=== PATIENT | male | born 1945 | race Caucasian/White ===

== ENCOUNTER 2021-01-25 06:20 | Day surgery (SDC) | payer MEDICARE, OTHER, SELFPAY ==
[2021-01-15 09:58] LABS: MANUAL DIFF FLAG NO
[2021-01-15 10:48] LABS: Basophils Percent Auto 0.7 % (0-2); Eosinophils Absolute Auto 0.1 X10*3/uL (0.0-0.4); Eosinophils Percent Auto 1.6 % (0-4); Hematocrit 35.9 % (42-52); Hemoglobin 12.4 g/dl (14.0-18.0); Imm Gran Abs Auto 0.01 X10*3/uL (0.00-0.03); Imm Gran Pct Auto 0.2 % (0.0-0.4); Lymphocytes Absolute Auto 1.1 X10*3/uL (1.2-4.9); Lymphocytes Percent Auto 25.3 % (20-40); Mean Corpuscular HGB Conc 34.5 g/dl (31.0-36.0); Mean Corpuscular Hemoglobin 32.5 pg (27.0-33.0); Mean Platelet Volume 10.4 fL (9.4-12.4); Monocytes Absolute Auto 0.6 X10*3/uL (0.1-1.2); Neutrophils Absolute Auto 2.6 X10*3/uL (2.0-8.3); Neutrophils Percent Auto 59.2 % (45-73); Platelet Count 276 X10*3/uL (160-400); Red Blood Count 3.82 X10*6/uL (4.60-5.80); Red Cell Distribution Width 12.3 % (11.0-16.0); White Blood Count 4.4 X10*3/uL (4.8-10.8)
[2021-01-15 11:08] LABS: INTERNATIONAL NORM RATIO 1.2 (0.9-1.1); Prothrombin Time 13.8 SEC (9.9-13.0)
[2021-01-15 11:20] LABS: Anion Gap 11 (12-20); Blood Urea Nitrogen 15 mg/dL (9-16); Calcium 9.5 mg/dL (8.4-10.2); Carbon Dioxide 26 mmol/L (22-29); Chloride 106 mmol/L (96-108); Estimated Glomerular Filt Rate > 60; Glucose Random 101 mg/dL (60-115); Potassium 4.8 mmol/L (3.3-5.1); Sodium 138 mmol/L (135-145)
[2021-01-15 12:12] LABS: Appearance Urine CLEAR; Color Urine YELLOW; Glucose Urine UA NEG (NEG); Leukocyte Esterase Urine NEG (NEG); Nitrite Urine NEG (NEG); Urine Blood NEG (NEG); Urine Ketones NEG (NEG); Urine Protein NEG (NEG-TRACE)
--- NOTE | 2021-01-20 10:52 | MHC.SHP ---
Pre-Procedural Eval Section A Date of Service: 01/20/21 The patient is an INPATIENT: No Changes since office visit: No Cold of Flu in the past 2 weeks, No New Medical Problems, No Changes in Medication and No Patient answered all questions The History & Physical has been completed within 30 days and I have reviewed it.: Yes Section B Chief Complaint: cataract left eye Allergies: Allergies Allergy/AdvReac Type Severity Reaction Status Date / Time acetaminophen [From PERCOCET] Allergy Unknown PER PT Verified 01/15/21 08:57 WIRED From PERCOCET Allergy Unknown PER PT Uncoded 01/15/21 08:57 WIRED Plan Diagnosis/Plan: Unchanged I have reviewed the history and physical and performed a pertinent physical examination on my patient. No changes have occurred unless specified.
[2021-01-21 08:12] VITALS: BMI 27.9
--- NOTE | 2021-01-22 09:28 | P.CONAN_ITS ---
Documented by User: Gypsy Nieves NP 01/22/21 09:30 HPI - Anesthesia Eval Consult details Narrative: 75yo M for Left Cataract Multifocal with IOL Insertion PCP cleared No previous cataract PMFSH Active Problems Active Problems: All Active Problems (Updated 01/19/21 @ 11:49 by Camila Calderon, ISMA) Pre-op evaluation (Acute) Essential hypertension (Acute) Past Medical History Medical History Arthritis Chronic low back pain with left-sided sciatica HTN (hypertension) Surgical History Surgical History H/O prostatectomy History of carpal tunnel release Hx of colonoscopy Social History Social History Patient Tobacco Use Status: Never used Tobacco Tobacco use type: Cigarette e-Cigarette/Vaping Use: Never Used Second Hand Smoke Exposure: No Use of substances other than those prescribed or required for medical reasons: No Are you DNR?: No Advance Directives: No Advance Directives Information Provided: Yes Meds Allergies Allergy/AdvReac Type Severity Reaction Status Date / Time acetaminophen [From PERCOCET] Allergy Mild PER PT Verified 01/25/21 06:27 WIRED From PERCOCET Allergy Mild PER PT Uncoded 01/25/21 06:27 WIRED Home Medications Medication Instructions Recorded Confirmed Last Taken Type cholecalciferol (vitamin D3) 25 25 mcg PO DAILY 01/15/21 01/19/21 Unknown History mcg (1,000 unit) capsule magnesium oxide 400 mg PO DAILY 01/15/21 01/19/21 Unknown History Exam Exam Date and Time: January 22, 2021 0928 Height,Weight and Vital Signs: Height 6 ft Weight 93.44 kg Pertinent Lab Results Pertinent Lab Results: Laboratory Tests 01/15/21 01/15/21 01/15/21 09:56 09:56 09:56 WBC 4.4 L RBC 3.82 L Hgb 12.4 L Hct 35.9 L MCV 94.0 MCH 32.5 MCHC 34.5 RDW 12.3 Plt Count 276 MPV 10.4 Immature Gran % (Auto) 0.2 Neut % (Auto) 59.2 Lymph % (Auto) 25.3 [place] % (Auto) 13.0 H Eos % (Auto) 1.6 Baso % (Auto) 0.7 Lymph # (Auto) 1.1 L [place] # (Auto) 0.6 Eos # (Auto) 0.1 Baso # (Auto) 0.0 Abs Immat Gran (auto) 0.01 Absolute Neuts (auto) 2.6 Absolute Nucleated RBC 0.000 Nucleated RBC % (auto) 0.0 PT 13.8 H INR 1.2 H Sodium 138 Potassium 4.8 Chloride 106 Carbon Dioxide 26 Anion Gap 11 L BUN 15 Creatinine 0.94 Estim Creat Clear Calc TNP Estimated GFR > 60 Random Glucose 101 Calcium 9.5 Urine Color Urine Appearance Urine pH Ur Specific [place] Urine Protein Urine Glucose (UA) Urine Ketones Urine Blood Urine Nitrite Ur Leukocyte Esterase 01/15/21 Unknown WBC RBC Hgb Hct MCV MCH MCHC RDW Plt Count MPV Immature Gran % (Auto) Neut % (Auto) Lymph % (Auto) [place] % (Auto) Eos % (Auto) Baso % (Auto) Lymph # (Auto) [place] # (Auto) Eos # (Auto) Baso # (Auto) Abs Immat Gran (auto) Absolute Neuts (auto) Absolute Nucleated RBC Nucleated RBC % (auto) PT INR Sodium Potassium Chloride Carbon Dioxide Anion Gap BUN Creatinine Estim Creat Clear Calc Estimated GFR Random Glucose Calcium Urine Color YELLOW Urine Appearance CLEAR Urine pH 6.0 Ur Specific [place] 1.010 Urine Protein NEG Urine Glucose (UA) NEG Urine Ketones NEG Urine Blood NEG Urine Nitrite NEG Ur Leukocyte Esterase NEG Assessment and Plan Assessment Anesthesia Assessment: Chart Reviewed Documented by User: Jayjay Huddleston MD 01/25/21 07:03 [facility] Past Medical History Medical History Arthritis Chronic low back pain with left-sided sciatica HTN (hypertension) Family History Family history of problems with anesthesia: No Surgical History Surgical History H/O prostatectomy History of carpal tunnel release Hx of colonoscopy History of Problems with Anesthesia: No Social History Social History Patient Tobacco Use Status: Never used Tobacco Tobacco use type: Cigarette e-Cigarette/Vaping Use: Never Used Second Hand Smoke Exposure: No Use of substances other than those prescribed or required for medical reasons: No Are you DNR?: No Advance Directives: No Advance Directives Information Provided: Yes Meds Allergies Allergy/AdvReac Type Severity Reaction Status Date / Time acetaminophen [From PERCOCET] Allergy Mild PER PT Verified 01/25/21 06:27 WIRED From PERCOCET Allergy Mild PER PT Uncoded 01/25/21 06:27 WIRED Home Medications Medication Instructions Recorded Confirmed Last Taken Type cholecalciferol (vitamin D3) 25 25 mcg PO DAILY 01/15/21 01/19/21 Unknown History mcg (1,000 unit) capsule magnesium oxide 400 mg PO DAILY 01/15/21 01/19/21 Unknown History Exam Airway Mallampati Class: III TM Dist: >3cm Neck ROM: Full Loose/Missing/Broken Teeth: No (few permanent caps) Heart: rrr+[id number] Lungs: cta b/l Assessment and Plan Assessment Anesthesia Assessment: Anesthesia Plan Discussed Final Anesthetic Review Family History of Problems with Anesthesia: No History of Problems with Anesthesia: No NPO: Yes ASA Class: II Final Preanesthetic Review: No Changes in Pt Med Stat, Meds/Allgs Chart Reviewed, Consent Obtained/Reviewed and Anes Risks/Benef Reviewed Patient Risk: Intermediate Procedure Risk: Low Assessment/Block/Sedation in SS: Assess/Block/Sedation-SS Anesthetic Plan Anesthetic Plan: MAC: and Agree w/ Assess. and Plan Disposition: Standard PACU
[2021-01-25 06:42] VITALS: BP 122/71; PULSE 65; RESP 18; TEMP 36.1; O2SAT 99
[2021-01-25] MEDS: Lactated Ringers 500 ML 50 ML IV (06:54)
[2021-01-25] MEDS: Tetracaine HCl/PF 0.5% Oph Sol 4 ML DROPS 1 DROP EYE-LEFT (06:56)
[2021-01-25] MEDS: Tropicamide 1 % Ophth Sol 3 ML BTL 1 DROP EYE-LEFT ×3 (06:58→07:08)
[2021-01-25] MEDS: Phenylephrine HCL 2.5% Oph SoL 2 ML BOTTLE 1 DROP EYE-LEFT ×3 (07:01→07:10)
--- NOTE | 2021-01-25 07:55 | HO.PNOPHT ---
Ophthalmology Procedure Procedure Date of Service: 01/25/21 Ophthalmology Viscoelastic: Healon Duet Dual Pack Pro Ophthalmology Lenses: TECNIS [id number] (23.5) Procedure Notes: PREOPERATIVE DIAGNOSIS: Decreased visual acuity left eye secondary to cataract POSTOPERATIVE DIAGNOSIS: Same PROCEDURE: Left cataract extraction with intraocular lens insertion SURGEON: Williams Braxton M.D. ANESTHESIA: Topical/MAC ESTIMATED BLOOD LOSS: None COMPLICATIONS: None After obtaining informed consent, the patient was brought to the operation room suite and placed in the supine position. After adequate sedation per anesthesia, topical drops of Tetracaine were given to the left eye. The eye was then prepped and draped in the usual sterile fashion. The operating room microscope was then positioned over the operative eye and a lid speculum placed. A paracentesis was created. Viscoelastic was then instilled into the anterior chamber. A three plane incision was then created temporally, utilizing a 2.85 mm keratome. Capsulotomy forceps were then utilized to create a circular tear capsulotomy. Hydrodissection and hydrodelineation were carried out until adequate mobilization of the nucleus occurred. Phacoemulsification was then utilized to remove the dense central nucleus followed by removal of the cortical material utilizing the automated aspiration irrigation unit. Viscoat elastic was instilled into the posterior capsular bag followed by placement of a posterior chamber intraocular lens without difficulty. The residual Viscoat elastic was then removed utilizing the automated IA machine. The wound was check and found to be watertight. The patient tolerated the procedure well and the lid speculum was removed. Intracameral injection of Vigamox 0.1 mL followed by a subtenon injection of Kenalog-40 0.2 mL were administered. The patient will be seen in the a.m.
[2021-01-25 08:18] VITALS: BP 136/78; PULSE 64; RESP 16; TEMP 36.6; O2SAT 97
== END 2021-01-25 08:27 | disposition home or self-care (01) ==
PROVIDERS: Absent Provider Nurse Practitioner Family; PCP Internal Medicine; Visit Provider Ophthalmology
PROC: (CPT 66985; principal; 2021-01-25 08:00)
DX: H25.12 Age-related nuclear cataract, left eye (principal); H52.4 Presbyopia; Z83.511 Family history of glaucoma; I10 Essential (primary) hypertension; Z79.899 Other long term (current) drug therapy; Z85.46 Personal history of malignant neoplasm of prostate
CPT/HCPCS: 66984; 36415; 80048; 81003; 85025; 85610; J2250; J3010; J3300; V2632

== ENCOUNTER 2021-02-08 06:06 | Day surgery (SDC) | payer MEDICARE, OTHER, SELFPAY ==
[2021-01-21 08:11] VITALS: BMI 27.9
--- NOTE | 2021-02-04 13:27 | MHC.SHP ---
Pre-Procedural Eval Section A Date of Service: 02/04/21 The patient is an INPATIENT: No Changes since office visit: No Cold of Flu in the past 2 weeks, No New Medical Problems, No Changes in Medication and No Patient answered all questions The History & Physical has been completed within 30 days and I have reviewed it.: Yes Section B Chief Complaint: cataract right eye Allergies: Allergies Allergy/AdvReac Type Severity Reaction Status Date / Time acetaminophen [From PERCOCET] Allergy Mild PER PT Verified 01/25/21 06:27 WIRED From PERCOCET Allergy Mild PER PT Uncoded 01/25/21 06:27 WIRED Plan Diagnosis/Plan: Unchanged I have reviewed the history and physical and performed a pertinent physical examination on my patient. No changes have occurred unless specified.
--- NOTE | 2021-02-05 13:09 | HO.ANESPROP2 ---
Documented by User: Gypsy Nieves NP 02/05/21 13:10 HPI - Anesthesia Eval Consult details Narrative: 75yo M for Right Cataract Extraction IOL Insertion PCP cleared Left eye 01/25/21 with MAC: Fent 50, Midaz 1 PMFSH Active Problems Active Problems: All Active Problems (Updated 01/19/21 @ 11:49 by Camila Calderon, ISMA) Pre-op evaluation (Acute) Essential hypertension (Acute) Past Medical History Medical History Arthritis Chronic low back pain with left-sided sciatica HTN (hypertension) Family History Family history of problems with anesthesia: No Surgical History Surgical History H/O prostatectomy History of carpal tunnel release History of cataract extraction Hx of colonoscopy History of Problems with Anesthesia: No Social History Social History Patient Tobacco Use Status: Never used Tobacco Tobacco use type: Cigarette e-Cigarette/Vaping Use: Never Used Second Hand Smoke Exposure: No Use of substances other than those prescribed or required for medical reasons: No Are you DNR?: No Advance Directives: No Advance Directives Information Provided: Yes Meds Allergies Allergy/AdvReac Type Severity Reaction Status Date / Time acetaminophen [From PERCOCET] Allergy Mild PER PT Verified 02/08/21 06:15 WIRED From PERCOCET Allergy Mild PER PT Uncoded 01/25/21 06:27 WIRED Home Medications Medication Instructions Recorded Confirmed Last Taken Type cholecalciferol (vitamin D3) 25 25 mcg PO DAILY 01/15/21 01/19/21 Unknown History mcg (1,000 unit) capsule magnesium oxide 400 mg PO DAILY 01/15/21 01/19/21 Unknown History Exam Exam Date and Time: February 05, 2021 1309 Height,Weight and Vital Signs: Height 6 ft Weight 93.44 kg Assessment and Plan Assessment Anesthesia Assessment: Chart Reviewed Final Anesthetic Review Family History of Problems with Anesthesia: No History of Problems with Anesthesia: No Documented by User: Jayjay Huddleston MD 02/08/21 07:02 [facility] Past Medical History Medical History Arthritis Chronic low back pain with left-sided sciatica HTN (hypertension) Surgical History Surgical History H/O prostatectomy History of carpal tunnel release History of cataract extraction Hx of colonoscopy Social History Social History Patient Tobacco Use Status: Never used Tobacco Tobacco use type: Cigarette e-Cigarette/Vaping Use: Never Used Second Hand Smoke Exposure: No Use of substances other than those prescribed or required for medical reasons: No Are you DNR?: No Advance Directives: No Advance Directives Information Provided: Yes Meds Allergies Allergy/AdvReac Type Severity Reaction Status Date / Time acetaminophen [From PERCOCET] Allergy Mild PER PT Verified 02/08/21 06:15 WIRED From PERCOCET Allergy Mild PER PT Uncoded 01/25/21 06:27 WIRED Home Medications Medication Instructions Recorded Confirmed Last Taken Type cholecalciferol (vitamin D3) 25 25 mcg PO DAILY 01/15/21 01/19/21 Unknown History mcg (1,000 unit) capsule magnesium oxide 400 mg PO DAILY 01/15/21 01/19/21 Unknown History Exam Airway Mallampati Class: III TM Dist: >3cm Neck ROM: Full Loose/Missing/Broken Teeth: Yes Heart: rrr+s1s2 Lungs: cta b/l Assessment and Plan Assessment Anesthesia Assessment: Anesthesia Plan Discussed Final Anesthetic Review NPO: No ASA Class: III Final Preanesthetic Review: No Changes in Pt Med Stat, Meds/Allgs Chart Reviewed, Consent Obtained/Reviewed and Anes Risks/Benef Reviewed Patient Risk: Intermediate Procedure Risk: Low Assessment/Block/Sedation in SS: Assess/Block/Sedation-SS Anesthetic Plan Anesthetic Plan: MAC: and Agree w/ Assess. and Plan Disposition: Standard PACU
[2021-02-08 06:16] VITALS: BP 141/73; PULSE 85; RESP 16; TEMP 36.2; O2SAT 98
[2021-02-08] MEDS: Tetracaine HCl/PF 0.5% Oph Sol 4 ML DROPS 1 DROP EYE-RIGHT (06:25)
[2021-02-08] MEDS: Lactated Ringers 500 ML 50 ML IV (06:27)
[2021-02-08] MEDS: Tropicamide 1 % Ophth Sol 3 ML BTL 1 DROP EYE-RIGHT ×3 (06:27→06:34)
[2021-02-08] MEDS: Phenylephrine HCL 2.5% Oph SoL 2 ML BOTTLE 1 DROP EYE-RIGHT ×3 (06:29→06:36)
--- NOTE | 2021-02-08 07:12 | HO.PNOPHT ---
Ophthalmology Procedure Procedure Date of Service: 02/08/21 Ophthalmology Viscoelastic: Healon Duet Dual Pack Pro Ophthalmology Lenses: TECNIS [id number] (23.5) Procedure Notes: PREOPERATIVE DIAGNOSIS: Decreased visual acuity right eye secondary to cataract POSTOPERATIVE DIAGNOSIS: Same PROCEDURE: Right cataract extraction with intraocular lens insertion SURGEON: Williams Braxton M.D. ANESTHESIA: Topical/MAC ESTIMATED BLOOD LOSS: None COMPLICATIONS: None After obtaining informed consent, the patient was brought to the operating room suite and placed in the supine position. After adequate sedation per anesthesia, topical drops of Tetracaine were given to the right eye. The eye was then prepped and draped in the usual sterile fashion. The operating room microscope was then positioned over the operative eye and a lid speculum placed. A paracentesis was created. Viscoelastic was then instilled into the anterior chamber. A three plane incision was then created temporally, utilizing a 2.85 mm keratome. Capsulotomy forceps were then utilized to create a circular tear capsulotomy. Hydrodissection and hydrodelineation were carried out until adequate mobilization of the nucleus occurred. Phacoemulsification was then utilized to remove the dense central nucleus followed by removal of the cortical material utilizing the automated aspiration irrigation unit. Viscoelastic was instilled into the posterior capsular bag followed by placement of a posterior chamber intraocular lens without difficulty. The residual Viscoelastic was then removed utilizing the automated IA machine. The wound was checked and found to be watertight. The patient tolerated the procedure well and the lid speculum was removed. Intracameral injection of Vigamox 0.1 mL followed by a subtenon injection of Kenalog-40 0.2 mL were administered. The patient will be seen in the a.m.
[2021-02-08 07:56] VITALS: BP 118/62; PULSE 60; RESP 16; TEMP 36.4; O2SAT 98
== END 2021-02-08 08:11 | disposition home or self-care (01) ==
PROVIDERS: PCP Internal Medicine; Visit Provider Ophthalmology
PROC: (CPT 66985; principal; 2021-02-08 07:30)
DX: H25.11 Age-related nuclear cataract, right eye (principal); H52.4 Presbyopia; Z83.511 Family history of glaucoma; I10 Essential (primary) hypertension; Z79.899 Other long term (current) drug therapy
CPT/HCPCS: 66984; J2250; J3010; J3300; V2632

== ENCOUNTER 2021-04-15 09:39 | Outpatient (REF) | payer MEDICARE, OTHER, SELFPAY ==
[2021-04-15 09:59] LABS: MANUAL DIFF FLAG NO
[2021-04-15 10:05] LABS: Basophils Percent Auto 0.2 % (0-2); Eosinophils Absolute Auto 0.1 X10*3/uL (0.0-0.4); Eosinophils Percent Auto 2.2 % (0-4); Hematocrit 35.3 % (42.0-52.0); Hemoglobin 12.1 g/dl (14.0-18.0); Imm Gran Abs Auto 0.02 X10*3/uL (0.00-0.03); Imm Gran Pct Auto 0.4 % (0.0-0.4); Lymphocytes Absolute Auto 1.4 X10*3/uL (1.2-4.9); Mean Corpuscular HGB Conc 34.3 g/dl (31.0-36.0); Mean Corpuscular Hemoglobin 32.4 pg (27.0-33.0); Mean Corpuscular Volume 94.4 fL (80.0-98.0); Mean Platelet Volume 10.4 fL (9.4-12.4); Monocytes Absolute Auto 0.6 X10*3/uL (0.1-1.2); Monocytes Percent Auto 12.7 % (2-11); Neutrophils Absolute Auto 2.4 x10*3/uL (2.0-8.3); Neutrophils Percent Auto 53.5 % (45-73); Platelet Count 287 X10*3/uL (160-400); Red Blood Count 3.74 X10*6/uL (4.60-5.80); Red Cell Distribution Width 11.9 % (11.0-16.0); White Blood Count 4.5 X10*3/uL (4.8-10.8)
[2021-04-15 11:03] LABS: Alanine Aminotransferase 26 U/L (0-40); Albumin Level 4.2 g/dL (3.5-5.0); Alkaline Phosphatase 73 U/L (39-117); Anion Gap 10 (12-20); Aspartate Amino Transferase 20 U/L (5-37); Bilirubin Total 0.6 mg/dL (0.0-1.0); Blood Urea Nitrogen 21 mg/dL (9-16); Calcium 9.4 mg/dL (8.4-10.2); Carbon Dioxide 27 mmol/L (22-29); Chloride 106 mmol/L (96-108); Cholesterol 182 mg/dL; Estimated Glomerular Filt Rate > 60; Glucose Random 101 mg/dL (60-115); HDL Cholesterol 38 mg/dL; LDL Cholesterol Calculated 133 mg/dl; Potassium 4.6 mmol/L (3.3-5.1); Sodium 138 mmol/L (135-145); Total Protein 7.1 g/dL (6.5-8.0); Triglycerides 58 mg/dL
[2021-04-15 11:29] LABS: Folate 16.7 ng/mL (> or = 4.0); Vitamin B12 715 pg/mL (200-900)
[2021-04-15 11:31] LABS: Prostate Specific Antigen Scr < 0.05 ng/mL (<0.05-4.0)
== END 2021-04-15 09:40 | disposition home or self-care (01) ==
LOC: HO.LAB 09:39
PROVIDERS: PCP Internal Medicine; Visit Provider Internal Medicine
DX: Z12.5 Encounter for screening for malignant neoplasm of prostate (principal); I10 Essential (primary) hypertension; E78.00 Pure hypercholesterolemia, unspecified
CPT/HCPCS: 36415; 80053; 80061; 82607; 82746; 84153; 84439; 84443; 85025

== ENCOUNTER 2021-10-25 14:10 | Outpatient (REF) | payer MEDICARE, OTHER, SELFPAY ==
[2021-10-25 14:57] LABS: Influenza A PCR NEGATIVE (Negative); Influenza B PCR NEGATIVE (Negative); Resp Syncy Virus RNA Qual PCR NEGATIVE (Negative); SARS COV2 PCR INHOUSE NEGATIVE (Negative)
== END 2021-10-25 14:11 | disposition home or self-care (01) ==
LOC: HO.LAB 14:10
PROVIDERS: PCP Internal Medicine; Visit Provider Internal Medicine
DX: Z20.822 Contact with and (suspected) exposure to COVID-19 (principal); R05.9 Cough, unspecified
CPT/HCPCS: 0241U

== ENCOUNTER 2022-02-21 07:15 | Outpatient (REF) | payer MEDICARE, OTHER, SELFPAY ==
[2022-02-21 09:57] LABS: PSA,Total (Free>4and<10) < 0.10 ng/mL (0.00-4.00)
[2022-02-25 15:46] LABS: SARS COV2 IgG Negative (Negative)
== END 2022-02-21 07:16 | disposition home or self-care (01) ==
LOC: HO.LAB 07:15
PROVIDERS: PCP Internal Medicine; Visit Provider Internal Medicine
DX: C61 Malignant neoplasm of prostate (principal); I10 Essential (primary) hypertension; Z20.822 Contact with and (suspected) exposure to COVID-19
CPT/HCPCS: 36415; 84153; 86769

== ENCOUNTER 2022-05-13 07:02 | Outpatient (REF) | payer MEDICARE, OTHER, SELFPAY ==
[2022-05-13 07:10] LABS: MANUAL DIFF FLAG NO
[2022-05-13 08:11] LABS: Basophils Percent Auto 0.5 % (0-2); Eosinophils Absolute Auto 0.1 X10*3/uL (0.0-0.4); Eosinophils Percent Auto 2.7 % (0-4); Hematocrit 38.3 % (42.0-52.0); Imm Gran Abs Auto 0.01 X10*3/uL (0.00-0.03); Imm Gran Pct Auto 0.3 % (0.0-0.4); Lymphocytes Absolute Auto 1.2 X10*3/uL (1.2-4.9); Mean Corpuscular HGB Conc 33.9 g/dl (31.0-36.0); Mean Corpuscular Hemoglobin 31.7 pg (27.0-33.0); Mean Corpuscular Volume 93.4 fL (80.0-98.0); Mean Platelet Volume 10.7 fL (9.4-12.4); Monocytes Absolute Auto 0.6 X10*3/uL (0.1-1.2); Monocytes Percent Auto 16.8 % (2-11); Neutrophils Absolute Auto 1.8 x10*3/uL (2.0-8.3); Neutrophils Percent Auto 47.7 % (45-73); Platelet Count 256 X10*3/uL (160-400); Red Cell Distribution Width 12.6 % (11.0-16.0); White Blood Count 3.8 X10*3/uL (4.8-10.8)
[2022-05-13 08:17] LABS: Estimated Average Glucose 108 mg/dL; Hemoglobin A1c % 5.4 %
[2022-05-13 08:41] LABS: Alanine Aminotransferase 18 U/L (0-40); Albumin Level 4.4 g/dL (3.5-5.0); Alkaline Phosphatase 64 U/L (39-117); Anion Gap 13 (12-20); Aspartate Amino Transferase 23 U/L (5-37); Bilirubin Total 1.1 mg/dL (0.0-1.0); Blood Urea Nitrogen 18 mg/dL (9-16); Calcium 9.7 mg/dL (8.4-10.2); Carbon Dioxide 27 mmol/L (22-29); Chloride 103 mmol/L (96-108); Cholesterol 168 mg/dL; Estimated Glomerular Filt Rate > 60; Glucose Random 103 mg/dL (60-115); HDL Cholesterol 42 mg/dL; LDL Cholesterol Calculated 112 mg/dl; Potassium 4.5 mmol/L (3.3-5.1); Sodium 138 mmol/L (135-145); Triglycerides 72 mg/dL
[2022-05-13 09:13] LABS: Folate 15.4 ng/mL (> or = 4.0); Thyroid Stimulating Hormone 0.96 uIU/mL (0.32-4.0); Vitamin B12 709 pg/mL (200-900)
== END 2022-05-13 07:03 | disposition home or self-care (01) ==
LOC: HO.LAB 07:02
PROVIDERS: PCP Internal Medicine; Visit Provider Internal Medicine
DX: R73.02 Impaired glucose tolerance (oral) (principal); E78.00 Pure hypercholesterolemia, unspecified
CPT/HCPCS: 36415; 80053; 80061; 82607; 82746; 83036; 84439; 84443; 85025

== ENCOUNTER 2023-12-14 12:21 | Outpatient (AMB) | payer MEDICARE, OTHER, SELFPAY ==
[2023-12-14 12:39] VITALS: BP 130/72; PULSE 62; O2SAT 98; BMI 27.7
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
== END 2023-12-14 13:22 | disposition home or self-care (01) ==
PROVIDERS: PCP Internal Medicine; Visit Provider Internal Medicine
DX: Z00.00 Encounter for general adult medical examination without abnormal findings (principal); C61 Malignant neoplasm of prostate; E66.3 Overweight; R73.02 Impaired glucose tolerance (oral); I10 Essential (primary) hypertension; D63.8 Anemia in other chronic diseases classified elsewhere; H61.22 Impacted cerumen, left ear; R29.898 Other symptoms and signs involving the musculoskeletal system; M48.061 Spinal stenosis, lumbar region without neurogenic claudication; M25.511 Pain in right shoulder
CPT/HCPCS: 99397

== ENCOUNTER 2023-12-27 10:43 | Outpatient (REF) | payer MEDICARE, OTHER, SELFPAY ==
[2023-12-27 11:01] LABS: MANUAL DIFF FLAG NO
[2023-12-27 11:57] LABS: Basophils Percent Auto 0.6 % (0-2); Eosinophils Absolute Auto 0.1 X10*3/uL (0.0-0.4); Eosinophils Percent Auto 1.4 % (0-4); Hematocrit 34.6 % (42.0-52.0); Hemoglobin 12.3 g/dl (14.0-18.0); Imm Gran Abs Auto 0.02 X10*3/uL (0.00-0.03); Imm Gran Pct Auto 0.4 % (0.0-0.4); Immature Retic Fraction 10.9 % (2.3-13.4); Lymphocytes Absolute Auto 1.1 X10*3/uL (1.2-4.9); Lymphocytes Percent Auto 22.6 % (20-40); Mean Corpuscular HGB Conc 35.5 g/dl (31.0-36.0); Mean Corpuscular Hemoglobin 33.2 pg (27.0-33.0); Mean Corpuscular Volume 93.5 fL (80.0-98.0); Mean Platelet Volume 10.5 fL (9.4-12.4); Monocytes Absolute Auto 0.8 X10*3/uL (0.1-1.2); Monocytes Percent Auto 15.3 % (2-11); Neutrophils Percent Auto 59.7 % (45-73); Platelet Count 254 X10*3/uL (160-400); Red Cell Distribution Width 13.4 % (11.0-16.0); Retic HGB Equivalent 35.9 pg (30.0-35.0); Reticulocytes Absolute 0.073 X10*6/uL (0.026-0.095)
[2023-12-27 12:07] LABS: Estimated Average Glucose 105 mg/dL; Hemoglobin A1c % 5.3 % (<6.0)
[2023-12-27 12:36] LABS: Alanine Aminotransferase 19 U/L (0-40); Albumin Level 4.3 g/dL (3.5-5.0); Alkaline Phosphatase 61 U/L (39-117); Anion Gap 11 (12-20); Aspartate Amino Transferase 24 U/L (5-37); Bilirubin Total 0.8 mg/dL (0.0-1.0); Blood Urea Nitrogen 23 mg/dL (9-16); Calcium 9.9 mg/dL (8.4-10.2); Carbon Dioxide 27 mmol/L (22-29); Chloride 105 mmol/L (96-108); Cholesterol 161 mg/dL (<200); Estimated Glomerular Filt Rate > 60; Glucose Random 93 mg/dL (60-115); HDL Cholesterol 47 mg/dL (>40); Iron 98 mcg/dL (45-160); LDL Cholesterol Calculated 104 mg/dL (<100); Percent Iron Saturation 35 % (15-50); Potassium 4.6 mmol/L (3.3-5.1); Sodium 138 mmol/L (135-145); Total Iron Binding Capacity 278 mcg/dL (228-428); Total Protein 7.3 g/dL (6.5-8.0); Triglycerides 51 mg/dL (<150); Unsaturated Iron Binding 180 ug/dL
[2023-12-27 12:46] LABS: PSA,Total (Free>4and<10) < 0.10 ng/mL (0.00-4.00)
[2023-12-27 12:48] LABS: Ferritin 226 ng/mL (20-250); Free T4 (Free Thyroxine) 0.81 ng/dL (0.71-1.85); Thyroid Stimulating Hormone 1.05 uIU/mL (0.32-4.0)
[2023-12-27 12:57] LABS: Folate 15.2 ng/mL (> or = 4.0); Vitamin B12 859 pg/mL (200-900)
== END 2023-12-27 10:44 | disposition home or self-care (01) ==
LOC: HO.LAB 10:43
PROVIDERS: PCP Internal Medicine; Visit Provider Internal Medicine
DX: I10 Essential (primary) hypertension (principal); C61 Malignant neoplasm of prostate; D63.8 Anemia in other chronic diseases classified elsewhere; E78.00 Pure hypercholesterolemia, unspecified; Z12.5 Encounter for screening for malignant neoplasm of prostate
CPT/HCPCS: 36415; 80053; 80061; 82607; 82728; 82746; 83036; 83540; 84153; 84439; 84443; 85025; 85045

== ENCOUNTER 2024-04-02 08:27 | Outpatient (AMB) | payer MEDICARE, OTHER, SELFPAY ==
--- NOTE | 2024-04-02 08:28 | MHC.PC.OV ---
Vital Signs 04/02/24 08:29 Height 6 ft Weight 212 lb 4 oz BMI 28.8 BP 128/72 Blood Pressure Location Lt brachial Position Sitting Pulse 62 Pulse Source Pulse Oximeter Pulse Oximetry (%) 97 Oxygen Delivery Method Room Air Intake Visit Reasons: Hypertension Allergies From PERCOCET Allergy (Mild, Uncoded 04/02/24 08:32) PER PT WIRED Tobacco use date assessed: 04/02/24 Dental Screening Dental Screen Date: 04/02/24 Did you have a dental visit in the last 12 months?: Yes Did you have a dental problem in the last 6 months where you did not have access to dental care?: No Was dental information given to patient?: Patient has dentist HPI Hypertension HPI Details The patient is a 78-year-old male presenting with complaints of right shoulder discomfort and left foot numbness. The right shoulder issue has persisted for over a year, initially documented in 2018 with a diagnosis of calcific tendonitis. Previous x-rays indicated this condition; the patient describes regaining strength in the shoulder over time, yet still experiences weakness, particularly in performing arm curls with 20 pounds. The patient reports a sensation of tissue aggravation or potential tearing, though no pain is explicitly described, only a limitation in lifting capabilities. Past interventions included physical therapy, which the patient feels might not be beneficial for his current condition. He also reports numbness in the left foot, attributed to a history of lumbar spinal stenosis diagnosed in 2012. The numbness is not associated with any pain but is considered bothersome. The patient previously took gabapentin but stopped due to unclear benefits, yet wishes to reconsider this medication to address symptoms of pins and needles. Past medical history includes anemia, diagnosed previously, which remains stable. His history also includes essential hypertension, which is well-managed with lisinopril. The patient maintains an adequate hydration level, although a recent BUN level suggested possible dehydration. He currently drinks three 60-ounce bottles of water per day and aims to increase to four to improve hydration status. [facility] Medical History Polymyalgia rheumatica Knee osteoarthritis Renal cyst Prostate cancer Arthritis HTN (hypertension) Chronic low back pain with left-sided sciatica Pre-op evaluation Surgical History History of cataract extraction Hx of colonoscopy H/O prostatectomy History of carpal tunnel release Social History Housing: Apartment Alcohol intake: current Alcohol intake frequency: holidays/special occasions only Comment: once a month 1 glass Patient Tobacco Use Status: Never used Tobacco Tobacco use type: Cigarette e-Cigarette/Vaping Use: Never Used Second Hand Smoke Exposure: No service: No Current occupational status: retired Cognitive needs: No Hearing needs: No Vision needs: No Questionnaire PHQ-9 Over the last 2 weeks, how often have you been bothered by any of the following problems? 1. Little interest or pleasure in doing things: not at all 2. Feeling down, depressed, or hopeless: not at all 3. Trouble falling or staying asleep, or sleeping too much: not at all 4. Feeling tired or having little energy: not at all 5. Poor appetite or overeating: not at all 6. Feeling bad about yourself - or that you are a failure or have let yourself or your family down: not at all 7. Trouble concentrating on things, such as reading the newspaper or watching television: not at all 8. Moving or speaking so slowly that other people could have noticed. Or the opposite - being so fidgety or restless that you have been moving around a lot more than usual: not at all 9. Thoughts that you would be better off or of hurting yourself in some way: not at all Total score: 0 Source: Developed by Drs. Ryan Llamas, Yovana Orozco, Harinder Bailey and colleagues, with an educational leo from [employer]. Thrive Questionnaire Date Thrive assessed: 04/02/24 I am a: Patient What is your living situation today?: I have a steady place to live Within the past 12 months, did the food you bought not last and you didn't have the money to get more?: Never true Within the past 12 months, did you worry whether your food would run out before you got money to buy more?: Never true Do you have trouble paying for medicines?: No Do you have trouble getting transportation to medical appointments?: No Do you have trouble paying your heating and electricity bill?: No Do you have trouble taking care of your child, family member or friend?: No Do you have trouble with day-to-day activities such as bathing, preparing meals, shopping, managing finances, etc.?: No Are you currently unemployed and looking for a job?: No Are you interested in more education?: No Please select the resources that you would like help with: None Currently or been in a relationship where the following occur: No concerns reported THRIVE Score: 0 AUDIT C Alcohol Use Questionnaire (AUDIT-C) 1. How often do you have a drink containing alcohol?: Monthly or less 2. How many drinks containing alcohol do you have on a typical day when you are drinking?: 1 or 2 Total Score: 1 DAVID-7 AMB Questionnaire DAVID-7 Date DAVID - 7 assessed: 04/02/24 Feeling nervous, anxious, or on edge: 0 = Not at all Not being able to stop or control worryin = Not at all Worrying too much about different things: 0 = Not at all Trouble relaxin = Not at all Being so restless that it is hard to sit still: 0 = Not at all Becoming easily annoyed or irritable: 0 = Not at all Feeling afraid as if something awful might happen: 0 = Not at all Total DAVID-7 score (0-4 normal; 5-9 mild; 10-14 moderate; 15-21 severe): 0 Source: Developed by Drs. Ryan Llamas, Yovana Orozco, Harinder Bailey and colleagues, with an educational leo from [employer]. Physical exam (Primary Care) Vital Signs: Last Vital Signs Pulse 62 04/02/24 08:29 BP 128/72 04/02/24 08:29 Pulse Ox 97 04/02/24 08:29 Oxygen Delivery Method Room Air 04/02/24 08:29 BMI result Body Mass Index 28.8 Tobacco/Smoking Status: Tobacco use Status Tobacco use date assessed 04/02/24 04/02/24 08:34 Patient Tobacco Use Status Never used Tobacco 04/02/24 08:28 Tobacco use type Cigarette 04/02/24 08:28 e-Cigarette/Vaping Use Never Used 04/02/24 08:28 PHQ-9: PHQ-9 Score PHQ-9: Total score 0 04/02/24 08:34 Thrive Assessment: Date of Thrive Assessment Date Thrive assessed 04/02/24 04/02/24 08:34 Currently or been in a relationship where the following occur: No concerns reported Const General: alert; No acute distress Eyes Conjunctivae: conjunctivae normal Resp Auscultation: clear to auscultation bilaterally Cardio Rate: regular rate Rhythm: regular rhythm GI Inspection: Yes normal to inspection Extrem Other: pain on nthe R posterio shoulkder on elevation to 90 degrees, no swelling or redness General: Yes normal to inspection and No edema Coding Level of Care Code Est Pt Level 4 (71753) Diagnoses Essential hypertension I10 Overweight (BMI 25.0-29.9) E66.3 Prostate cancer C61 Anemia of chronic disease D63.8 Chronic right shoulder pain M25.511; G89.29 Chronicity: chronic Spinal stenosis, lumbar M48.061 Assessment & Plan Assessment & Plan (1) Essential hypertension: Code(s): I10 - Essential (primary) hypertension Category: Medical Plan: Continue with blood pressure medication. Decrease salt intake and exercise on lisinopril 10 mg once a (2) Overweight (BMI 25.0-29.9): Code(s): E66.3 - Overweight Category: Medical (3) Prostate cancer: Comment: Radical prostatectomy 02/04/2005, Dr. Porter status post radiotherapy April 2019 Code(s): C61 - Malignant neoplasm of prostate Category: Medical Plan: Continue to follow-up with urology but the PSA has been negative. (4) Anemia of chronic disease: Code(s): D63.8 - Anemia in other chronic diseases classified elsewhere Category: Medical Plan: Chronic and stable (5) Right shoulder pain: Comment: January 26 2023 Code(s): M25.511 - Pain in right shoulder Category: Medical Qualifiers: Chronicity: chronic Qualified Code(s): M25.511 - Pain in right shoulder; G89.29 - Other chronic pain Plan: xray requested and referral to orthopedic (6) Spinal stenosis, lumbar: Comment: MRI 2012 Code(s): M48.061 - Spinal stenosis, lumbar region without neurogenic claudication Category: Medical Plan - Obtain a current x-ray of the right shoulder to assess the progression of calcific tendonitis and involve orthopedic consultation for further evaluation and management. - Reinstate gabapentin treatment starting at 100 mg for the management of left foot sensory disturbance due to lumbar spinal stenosis, with a plan to titrate based on response. - Continue monitoring and managing hypertension with current medication, lisinopril. - Maintain observation of anemia and ensure stability via regular blood work. - Increase daily water intake to improve hydration status and aid renal function. - Continue annual ophthalmology follow-up for post-cataract surgery evaluation. - Reinforce adherence to current health maintenance and chronic disease management regimens and ensure compliance with recommended lifestyle and preventative health measures. Orders: Orders XR shoulder RT min 2V Today M25.511 - Pain in right shoulder Referrals Orthopedics Referral M25.511 - Pain in right shoulder Medications: New gabapentin 100 mg PO BEDTIME 30 caps 1RF M48.061 - Spinal stenosis, lumbar region without neurogenic claudication
[2024-04-02 08:29] VITALS: BP 128/72; PULSE 62; O2SAT 97; BMI 28.8
== END 2024-04-02 09:02 | disposition home or self-care (01) ==
PROVIDERS: PCP Internal Medicine; Visit Provider Internal Medicine
DX: I10 Essential (primary) hypertension (principal); E66.3 Overweight; C61 Malignant neoplasm of prostate; D63.8 Anemia in other chronic diseases classified elsewhere; M25.511 Pain in right shoulder; G89.29 Other chronic pain; M48.061 Spinal stenosis, lumbar region without neurogenic claudication

== ENCOUNTER → 2024-04-02 08:27 | Outpatient (BNVA) | payer MEDICARE, OTHER, SELFPAY | PROVIDERS: PCP Internal Medicine; Visit Provider Internal Medicine | DX: I10 Essential (primary) hypertension (principal); E66.3 Overweight; C61 Malignant neoplasm of prostate; D63.8 Anemia in other chronic diseases classified elsewhere; M25.511 Pain in right shoulder; G89.29 Other chronic pain; M48.061 Spinal stenosis, lumbar region without neurogenic claudication | CPT/HCPCS: 96127; 99212 ==

== ENCOUNTER 2024-04-04 11:51 | Outpatient (REF) | payer OTHER, MEDICARE, SELFPAY | END 2024-04-04 11:52 | disposition home or self-care (01) | LOC: HO.XRAY 11:51 | PROVIDERS: PCP Internal Medicine; Visit Provider Internal Medicine | DX: M25.511 Pain in right shoulder (principal) | CPT/HCPCS: 73030 ==

== ENCOUNTER → 2024-05-08 10:43 | Outpatient (BNVA) | payer MEDICARE, OTHER, SELFPAY | PROVIDERS: PCP Internal Medicine; Visit Provider Orthopaedic Surgery | DX: M75.121 Complete rotator cuff tear or rupture of right shoulder, not specified as traumatic (principal) | CPT/HCPCS: 99212 ==

== ENCOUNTER 2024-05-13 09:59 | Outpatient (AMB) | payer MEDICARE, OTHER, SELFPAY ==
--- NOTE | 2024-05-13 10:06 | MHC.OFFWIV ---
Intake Vital Signs 05/13/24 10:10 Weight 217 lb BP 126/70 Blood Pressure Location Rt brachial Position Sitting Pulse 80 Pulse Source Pulse Oximeter Temp 99 F Temp Source Oral Pulse Oximetry (%) 96 Oxygen Delivery Method Room Air Intake Visit Reasons: EP-cold symptoms Intake Note: Patient here for cough,chills, sinus congestion and sneezing that has been present for a couple of days. Patient Tobacco Use Status: Never used Tobacco Allergies From PERCOCET Allergy (Mild, Uncoded 05/13/24 10:11) PER PT WIRED Do you need a note to return to daycare/school/sports/work: No HPI HPI Comments History of Present Illness Details 78 y/o male patient who presents to the walk in clinic with c/o URI symptoms x 2 days. Reports fevers, chills, fatigue and generalized body aches. [facility] Medical History Polymyalgia rheumatica Knee osteoarthritis Renal cyst Prostate cancer Arthritis HTN (hypertension) Chronic low back pain with left-sided sciatica Pre-op evaluation Surgical History History of cataract extraction Hx of colonoscopy H/O prostatectomy History of carpal tunnel release Social History (Updated 05/08/24 @ 10:55 by RADHA Álvarez) Housing: Apartment Alcohol intake: current Alcohol intake frequency: holidays/special occasions only Comment: once a month 1 glass Patient Tobacco Use Status: Never used Tobacco Tobacco use type: Cigarette e-Cigarette/Vaping Use: Never Used Second Hand Smoke Exposure: No service: No Current occupational status: retired 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, 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 Cognitive needs: No Hearing needs: No Vision needs: No Review of Systems Const All systems reviewed & are unremarkable except as noted in HPI and below Physical Exam Vital Signs: Last Vital Signs Temp 99 F 05/13/24 10:10 Pulse 80 05/13/24 10:10 BP 126/70 05/13/24 10:10 Pulse Ox 96 05/13/24 10:10 Oxygen Delivery Method Room Air 05/13/24 10:10 Const General: cooperative and no acute distress Orientation/consciousness: patient oriented x3 HEENT Head: Yes normocephalic Ears: external ears normal and TM abnormal with fluid behind the TM bilateral General nose exam: Normal external nose present and Nasal discharge present Face and sinus: Yes sinuses nontender Mouth: moist mucous membranes Throat: Yes uvula midline Resp Effort & Inspection: normal respiratory effort, able to speak in complete sentences and no audible wheezes Auscultation: clear to auscultation bilaterally, no crackles, no rales, no rhonchi and no wheezes Cardio Heart sounds: S1 normal heart sound present and S2 normal heart sound present Neuro General: patient oriented x3 Assessment & Plan Assessment & Plan (1) Acute respiratory disease: Code(s): J06.9 - Acute upper respiratory infection, unspecified Plan: Ordered SARs Acetaminophen for fever relief Rest and hydrate well with fluids. Orders: Orders SARS-CoV2/FLU/RSV Today J06.9 - Acute upper respiratory infection, unspecified Coding Level of Care Code Est Pt Level 4 (71721) Diagnoses Acute respiratory disease J06.9 Time Spent (min) 20
[2024-05-13 10:10] VITALS: BP 126/70; PULSE 80; TEMP 37.2; O2SAT 96
== END 2024-05-13 10:35 | disposition home or self-care (01) ==
PROVIDERS: PCP Internal Medicine; Visit Provider Nurse Practitioner Family
DX: J06.9 Acute upper respiratory infection, unspecified (principal)

== ENCOUNTER 2024-05-13 09:59 | Outpatient (REF) | payer MEDICARE, OTHER, SELFPAY ==
[2024-05-13 17:31] LABS: Influenza A PCR NEGATIVE (Negative); Influenza B PCR NEGATIVE (Negative); Resp Syncy Virus RNA Qual PCR NEGATIVE (Negative); SARS COV2 PCR INHOUSE POSITIVE (Negative)
== END 2024-05-13 10:00 | disposition home or self-care (01) ==
LOC: HO.LAB 09:59
PROVIDERS: PCP Internal Medicine; Visit Provider Nurse Practitioner Family
DX: J06.9 Acute upper respiratory infection, unspecified (principal)
CPT/HCPCS: 0241U; 99212

== ENCOUNTER → 2024-05-31 07:47 | Outpatient (BNV) | payer MEDICARE, OTHER, SELFPAY | PROVIDERS: PCP Internal Medicine; Visit Provider Radiology Diagnostic Radiology | DX: M75.121 Complete rotator cuff tear or rupture of right shoulder, not specified as traumatic (principal); M65.811 Other synovitis and tenosynovitis, right shoulder | CPT/HCPCS: 73221 ==

== ENCOUNTER 2024-05-31 07:59 | Outpatient (REF) | payer MEDICARE, OTHER, SELFPAY ==
--- NOTE | ~2024-05-31 | MR_ITS ---
CLINICAL HISTORY: M75.121 - Complete rotator cuff tear or rupture of right shoulder, not s... MR right shoulder without gadolinium Comparison: None Findings: No acute fracture. Narrowing of the acromiohumeral distance. Small proximal humeral cysts as well as small glenohumeral osteophytes and focal glenoid small subchondral cysts. Questionable suture anchors at level of supra and infraspinatus footprints. Correlation with past surgical history recommended. Moderate AC joint osteoarthritis with mild distal clavicle hypertrophy. Type 1 acromion. Small glenohumeral osteoarthritis with [id number] synovitis most conspicuous at level of the axillary recess. Query adhesive capsulitis. Thinning of the superior aspect of the glenoid cartilage. Mild subacromial/subdeltoid bursitis. Continuous, full-thickness, full width (except for the anterior most aspect of the supraspinatus tendon), supraspinatus and infraspinatus footprint tears/avulsions with the torn tendon stump retracted up to 6.6 cm medially (retraction most conspicuous posteriorly/at level of the infraspinatus tendon , with the proximal torn tendon stump partially located superomedial to the humeral head level). Severe atrophy of the infraspinatus muscle and at least 50% fatty infiltration of the supraspinatus muscle. Bhkn-yj-pzsuurcf subscapularis tendinosis with a questionable focal low-grade, partial-thickness, partial width, articular sided tear. Relatively severely attenuated appearance of the visualized long head biceps tendon (except for portion just distal to the bicipital groove). Intra-articular/extra-articular junction of the biceps tendon could not be definitely individualized. No evidence of labral tear. IMPRESSION: 1. Continuous, full-thickness, full width (except for the anterior most aspect of the supraspinatus tendon), supraspinatus and infraspinatus footprint tears versus recurrent tears (questionable proximal humeral suture anchors). Associated severe atrophy of the infr spinatus muscle and at least 50% fatty infiltration of the supraspinatus muscle. 2. Relatively severely attenuated appearance of the long head of biceps tendon.Intra-articular/extra-articular junction of the biceps tendon could not be definitely individualized (attenuated versus completely torn). 3. Ghiw-sj-xuryhunp glenohumeral synovitis. Query adhesive capsulitis. This document has been electronically signed by: Keke Griffiths MD on 05/31/2024 11:02:36
== END 2024-05-31 08:00 | disposition home or self-care (01) ==
LOC: HO.MRI 07:59
PROVIDERS: PCP Internal Medicine; Visit Provider Orthopaedic Surgery
DX: M75.121 Complete rotator cuff tear or rupture of right shoulder, not specified as traumatic (principal)
CPT/HCPCS: 73221

== ENCOUNTER 2024-06-13 09:28 | Outpatient (AMB) | payer MEDICARE, OTHER, SELFPAY ==
--- NOTE | 2024-06-13 09:33 | MHC.OFFVIS ---
Vital Signs 06/13/24 09:36 Height 6 ft Weight 212 lb BMI 28.7 Intake Visit Reasons: OV- MRI review RT shoulder Intake Note: Toni is a 78 year old right hand dominant male who presents with complaints of progressively worsening right shoulder pain and weakness. 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 The patient states that he was helping some due an unruly patient in the detox unit when he had acute onset of pain. The patient has been to multiple sessions of formal physical therapy over the last year. The therapy seemed to aggravate his pain. He reports weakness when lifting his right hand above shoulder height. He has tried Tylenol and anti-inflammatory medicines which gave him minimal relief. He continues to go to the gym 2-3 days per week to exercise with light weights. Allergies From PERCOCET Allergy (Mild, Uncoded 06/13/24 09:36) PER PT WIRED Medication List - Last Reconciled 06/13/24 by Mikhail Lebron MD betamethasone valerate 0.1% 1 appl topical BID PRN cholecalciferol (vitamin D3) 25 mcg PO DAILY gabapentin 100 mg PO BEDTIME lisinopril 10 mg PO DAILY zinc acetate 50 mg PO DAILY [facility] Medical History (Updated 05/13/24 @ 19:16 by Derick Braxton MD) Acute respiratory disease Polymyalgia rheumatica Knee osteoarthritis Renal cyst Prostate cancer Arthritis HTN (hypertension) Chronic low back pain with left-sided sciatica Pre-op evaluation Surgical History History of cataract extraction Hx of colonoscopy H/O prostatectomy History of carpal tunnel release Social History (Updated 05/08/24 @ 10:55 by RADHA Álvarez) Housing: Apartment Alcohol intake: current Alcohol intake frequency: holidays/special occasions only Comment: once a month 1 glass Patient Tobacco Use Status: Never used Tobacco Tobacco use type: Cigarette e-Cigarette/Vaping Use: Never Used Second Hand Smoke Exposure: No service: No Current occupational status: retired 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, 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 Cognitive needs: No Hearing needs: No Vision needs: No Physical Exam Vital Signs: BMI result Body Mass Index 28.7 Const Other: Well-nourished well-developed very friendly male awake alert and oriented x3 in no acute distress Extrem Other: Bilateral upper extremity examination shows good capillary refill, no skin lesions noted, normal sensation light touch Right shoulder examination shows full active range of motion when compared to his left shoulder, 4/5 strength with supraspinatus testing, positive impingement signs, no instability Results Reviewed Results Reviewed: MRI of the patient's right shoulder shows a large, chronic rotator cuff tear with retraction shelter to the glenoid, a type 2 acromion, no acute bony abnormalities Assessment & Plan Assessment & Plan (1) Complete rotator cuff tear or rupture of right shoulder, not specified as traumatic: Code(s): M75.121 - Complete rotator cuff tear or rupture of right shoulder, not specified as traumatic Category: Medical Plan Mr. Andino presents with right shoulder pain and weakness due to a large rotator cuff tear. I had a lengthy discussion with the patient regarding the treatment options. Based on the size and chronicity of his tear I am not sure that a primary repair is possible at this point. He may be a candidate for a repair with patch reinforcement or possible reverse total shoulder replacement surgery. Thus, I will have the patient evaluated by my partner, Dr. White. He will continue with his range of motion exercises in the meantime. Feel free to call me at any time should questions regarding his orthopedic management arise. I spent 20 minutes in reviewing the patient's records and imaging studies, seeing the patient and documenting in the medical record. Coding Level of Care Code Est Pt Level 3 (99862) Complex EM visit Add On G2211 Diagnoses Complete rotator cuff tear or rupture of right shoulder, not specified as traumatic M75.121
[2024-06-13 09:36] VITALS: BMI 28.7
== END 2024-06-13 10:09 | disposition home or self-care (01) ==
PROVIDERS: PCP Internal Medicine; Visit Provider Orthopaedic Surgery
DX: M75.121 Complete rotator cuff tear or rupture of right shoulder, not specified as traumatic (principal)
CPT/HCPCS: 99213; G2211

== ENCOUNTER → 2024-06-13 09:28 | Outpatient (BNVA) | payer MEDICARE, OTHER, SELFPAY | PROVIDERS: PCP Internal Medicine; Visit Provider Orthopaedic Surgery | DX: M75.121 Complete rotator cuff tear or rupture of right shoulder, not specified as traumatic (principal) | CPT/HCPCS: 99212 ==

== ENCOUNTER 2024-07-15 08:18 | Outpatient (AMB) | payer MEDICARE, OTHER, SELFPAY ==
--- NOTE | 2024-07-15 08:21 | MHC.OFFVIS ---
Vital Signs 07/15/24 08:22 Height 6 ft Weight 212 lb BMI 28.7 Intake Visit Reasons: OV - Right RTC Tear - Discuss Treatments Intake Note: Toni is a 78 year old right hand dominant male who presents today for a follow up of his right shoulder. He was last seen with Dr. Lebron where he reported that he injured the shoulder in January of 2023. 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 Allergies From PERCOCET Allergy (Mild, Uncoded 07/15/24 08:26) PER PT WIRED HPI HPI OV - Right RTC Tear - Discuss Treatments: Details: Toni is a 78 year old right hand dominant male who presents today for a follow up of his right shoulder. He was last seen with Dr. Lebron where he reported that he injured the shoulder in January of 2023. 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 He is able to workout and has no pain. He does notice occasional weakness with certain activities but for the most part he is mostly just concerned about what his MRI showed and what future activities we will do in terms of risk for worsening symptoms. [facility] Medical History Acute respiratory disease Polymyalgia rheumatica Knee osteoarthritis Renal cyst Prostate cancer Arthritis HTN (hypertension) Chronic low back pain with left-sided sciatica Pre-op evaluation Surgical History History of cataract extraction Hx of colonoscopy H/O prostatectomy History of carpal tunnel release Social History Housing: Apartment Alcohol intake: current Alcohol intake frequency: holidays/special occasions only Comment: once a month 1 glass Patient Tobacco Use Status: Never used Tobacco Tobacco use type: Cigarette e-Cigarette/Vaping Use: Never Used Second Hand Smoke Exposure: No service: No Current occupational status: retired 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 When controlling for scapular motion he has 4- out of 5 strength with empty can testing. Negative lift-off. Results Reviewed Results Reviewed: I personally reviewed the MR images. IMPRESSION: 1. Continuous, full-thickness, full width (except for the anterior most aspect of the supraspinatus tendon), supraspinatus and infraspinatus footprint tears versus recurrent tears (questionable proximal humeral suture anchors). Associated severe atrophy of the infr spinatus muscle and at least 50% fatty infiltration of the supraspinatus muscle. 2. Relatively severely attenuated appearance of the long head of biceps tendon.Intra-articular/extra-articular junction of the biceps tendon could not be definitely individualized (attenuated versus completely torn). 3. Kqas-oq-jowersey glenohumeral synovitis. Query adhesive capsulitis. Assessment & Plan Assessment & Plan (1) Complete rotator cuff tear or rupture of right shoulder, not specified as traumatic: Code(s): M75.121 - Complete rotator cuff tear or rupture of right shoulder, not specified as traumatic Category: Medical Plan: This is a 78-year-old gentleman with a full-thickness rotator cuff tear that is unrepairable. He has no pain and full range of motion. His activities are only limited in terms of lifting weights and occasional sensation of weakness but his quality of life is, at this point at least, minimally affected. Given this I do not recommend intervention. I did discuss that we could treat with a superior capsular reconstruction versus arthroplasty. I think arthroplasty would be the treatment of choice for him but his symptoms are not sufficient to warrant surgery at this time. Should he worsen he will return to see me. Coding Level of Care Code Est Pt Level 4 (12798) Diagnoses Complete rotator cuff tear or rupture of right shoulder, not specified as traumatic M75.121
[2024-07-15 08:22] VITALS: BMI 28.7
== END 2024-07-15 09:00 | disposition home or self-care (01) ==
LOC: HO.HOS 08:19
PROVIDERS: PCP Internal Medicine; Visit Provider Orthopaedic Surgery
DX: M75.121 Complete rotator cuff tear or rupture of right shoulder, not specified as traumatic (principal)
CPT/HCPCS: 99213

== ENCOUNTER → 2024-07-15 08:18 | Outpatient (BNVA) | payer MEDICARE, OTHER, SELFPAY | PROVIDERS: PCP Internal Medicine; Visit Provider Orthopaedic Surgery | DX: M75.121 Complete rotator cuff tear or rupture of right shoulder, not specified as traumatic (principal) | CPT/HCPCS: 99212 ==

== ENCOUNTER 2024-12-17 10:08 | Outpatient (AMB) | payer MEDICARE, OTHER, SELFPAY ==
[2024-12-17 10:10] VITALS: BP 114/68; PULSE 58; O2SAT 98; BMI 28.3
--- NOTE | 2024-12-17 10:10 | MHC.PC.OV ---
Vital Signs 12/17/24 10:10 Height 6 ft Weight 209 lb BMI 28.3 BP 114/68 Blood Pressure Location Lt brachial Position Sitting Pulse 58 Pulse Source Pulse Oximeter Pulse Oximetry (%) 98 Oxygen Delivery Method Room Air Intake Visit Reasons: Annual Exam Allergies From [facility] Allergy (Mild, Uncoded 12/17/24 11:01) PER PT WIRED Medication List - Last Reconciled 12/17/24 by Derick Braxton MD betamethasone valerate 0.1% 1 appl topical BID PRN cholecalciferol (vitamin D3) 25 mcg PO DAILY gabapentin 100 mg PO BEDTIME lisinopril 10 mg PO DAILY magnesium 250 mg PO DAILY zinc acetate 50 mg PO DAILY Tobacco use date assessed: 12/17/24 Fall risk assessment: No Falls in past year Last assessed Fall Risk: 12/17/24 Dental Screening Dental Screen Date: 12/17/24 Did you have a dental visit in the last 12 months?: Yes Did you have a dental problem in the last 6 months where you did not have access to dental care?: No Was dental information given to patient?: Patient has dentist HPI Annual Exam HPI Details R shoulder 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 presently just conservative treatment. thoracic back october 2024 picking up and had pain- [facility] Medical History Acute respiratory disease Polymyalgia rheumatica Knee osteoarthritis Renal cyst Prostate cancer Arthritis HTN (hypertension) Chronic low back pain with left-sided sciatica Pre-op evaluation Surgical History History of cataract extraction Hx of colonoscopy H/O prostatectomy History of carpal tunnel release Social History (Updated 12/17/24 @ 11:04 by Derick Braxton MD) Housing: Apartment Alcohol intake: current Alcohol intake frequency: holidays/special occasions only Comment: once a month 1 glass, Patient Tobacco Use Status: Never used Tobacco Tobacco use type: Cigarette e-Cigarette/Vaping Use: Never Used Second Hand Smoke Exposure: No service: No Current occupational status: retired 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 1. Little interest or pleasure in doing things: not at all 2. Feeling down, depressed, or hopeless: not at all 3. Trouble falling or staying asleep, or sleeping too much: not at all 4. Feeling tired or having little energy: not at all 5. Poor appetite or overeating: not at all 6. Feeling bad about yourself - or that you are a failure or have let yourself or your family down: not at all 7. Trouble concentrating on things, such as reading the newspaper or watching television: not at all 8. Moving or speaking so slowly that other people could have noticed. Or the opposite - being so fidgety or restless that you have been moving around a lot more than usual: not at all 9. Thoughts that you would be better off or of hurting yourself in some way: not at all Total score: 0 Depression Screening Interpretation: Negative Depression Screening Done: Yes Source: Developed by Drs. Ryan Llamas, Yovana Orozco, Harinder Bailey and colleagues, with an educational leo from [employer]. Thrive Questionnaire Date Thrive assessed: 12/17/24 I am a: Patient What is your living situation today?: I have a steady place to live Within the past 12 months, did the food you bought not last and you didn't have the money to get more?: Never true Within the past 12 months, did you worry whether your food would run out before you got money to buy more?: Never true Do you have trouble paying for medicines?: No Do you have trouble getting transportation to medical appointments?: No Do you have trouble paying your heating and electricity bill?: No Do you have trouble taking care of your child, family member or friend?: No Do you have trouble with day-to-day activities such as bathing, preparing meals, shopping, managing finances, etc.?: No Are you currently unemployed and looking for a job?: No Are you interested in more education?: No Please select the resources that you would like help with: None Currently or been in a relationship where the following occur: No concerns reported THRIVE Score: 0 AUDIT C Alcohol Use Questionnaire (AUDIT-C) 1. How often do you have a drink containing alcohol?: Never 3. How often do you have six or more drinks on one occasion?: Never Total Score: 0 DAVID-7 AMB Questionnaire DAVID-7 Date DAVID - 7 assessed: 12/17/24 Feeling nervous, anxious, or on edge: 0 = Not at all Not being able to stop or control worryin = Not at all Worrying too much about different things: 0 = Not at all Trouble relaxin = Not at all Being so restless that it is hard to sit still: 0 = Not at all Becoming easily annoyed or irritable: 0 = Not at all Feeling afraid as if something awful might happen: 0 = Not at all Total DAVID-7 score (0-4 normal; 5-9 mild; 10-14 moderate; 15-21 severe): 0 Source: Developed by Drs. Ryan Llamas, Yovana Orozco, Harinder Bailey and colleagues, with an educational leo from [employer]. Review of Systems Const Denies poor appetite and Denies weakness Eyes Denies no additional complaints ENT Reports Normal hearing present, Denies dizziness, Denies nasal congestion, Denies tinnitus and Denies sore throat Card Denies chest pain, Denies syncope, Denies rapid heart rate and Denies dyspnea Resp Denies cough and Denies dyspnea GI Denies change in stool character, Reports constipation, Denies diarrhea, Denies nausea and Denies vomiting Denies dysuria and Denies urinary frequency Neuro Reports Normal hearing present, Denies confusion, Denies dizziness, Denies syncope and Denies weakness Psych Denies confusion Physical exam (Primary Care) Vital Signs: Last Vital Signs Pulse 58 12/17/24 10:10 BP 114/68 12/17/24 10:10 Pulse Ox 98 12/17/24 10:10 Oxygen Delivery Method Room Air 12/17/24 10:10 BMI result Body Mass Index 28.3 Tobacco/Smoking Status: Tobacco use Status Tobacco use date assessed 12/17/24 12/17/24 10:12 Patient Tobacco Use Status Never used Tobacco 12/17/24 11:04 Tobacco use type Cigarette 12/17/24 11:04 e-Cigarette/Vaping Use Never Used 12/17/24 11:04 PHQ-9: PHQ-9 Score PHQ-9: Total score 0 12/17/24 10:57 Depression Screening Interpretation: Negative Thrive Assessment: Date of Thrive Assessment Date Thrive assessed 12/17/24 12/17/24 10:12 Currently or been in a relationship where the following occur: No concerns reported Const General: No confusion Orientation/consciousness: No confusion HENMT Head: Yes normocephalic Ears: external ears normal and TM's normal bilaterally Face and sinus: Yes normal facial exam Mouth: moist mucous membranes Throat: Yes tonsils normal Eyes Conjunctivae: conjunctivae normal Pupils: Equal, round and reactive pupils present and Pupil accommodation reflex normal Direct Ophthalmoscopy: normal light reflex Neck Neck: No lymphadenopathy Thyroid: Thyroid normal Chest Chest palpation & inspection: normal inspection of the chest Resp Effort & Inspection: normal respiratory effort and no audible wheezes Auscultation: clear to auscultation bilaterally, no crackles, no wheezes and lung sounds not diminished Cardio Rate: regular rate Rhythm: regular rhythm Peripheral pulses: radial pulses present and dorsalis pedis present GI Other: guaic negative prostate none Palpation (GI): no masses Auscultation: normal bowel sounds and normoactive bowel sounds Rectal Exam - Male: Yes deferred Male General Exam: Yes normal external exam Skin General skin exam: no rashes or lesions noted Rashes: no rashes Neuro General: No confusion Cranial nerves: Yes Equal, round and reactive pupils present and Yes Normal hearing present Cognition (Neuro): normal cognition Gait exam (Neuro): Normal gait present Motor exam (neuro): 5/5 motor strength present throughout Deep tendon reflexes (DTR's): Right brachioradialis reflex intensity grade: 2+, Left brachioradialis reflex intensity grade: 2+, Right patellar reflex intensity grade: 2+ and Left patellar reflex intensity grade: 2+ Extrem General: No edema Coding Level of Care Code Est Pt Prev Care >65y(70898) Diagnoses Annual physical exam Z00.00 Complete rotator cuff tear or rupture of right shoulder, not specified as traumatic M75.121 Prostate cancer C61 Anemia of chronic disease D63.8 Impaired glucose tolerance R73.02 Essential hypertension I10 Thoracic back pain M54.6 Assessment & Plan Assessment & Plan (1) Annual physical exam: Code(s): Z00.00 - Encounter for general adult medical examination without abnormal findings Category: Medical Plan: Patient is advised to eat healthy, keep well hydrated, keep active and have adequate sleep. (2) Complete rotator cuff tear or rupture of right shoulder, not specified as traumatic: Code(s): M75.121 - Complete rotator cuff tear or rupture of right shoulder, not specified as traumatic Category: Medical Plan: Patient has been seeing ortho and conservative management advised (3) Prostate cancer: Comment: Radical prostatectomy 02/04/2005, Dr. Porter status post radiotherapy April 2019 Code(s): C61 - Malignant neoplasm of prostate Category: Medical Plan: Continue to follow-up with urology (4) Anemia of chronic disease: Code(s): D63.8 - Anemia in other chronic diseases classified elsewhere Category: Medical Plan: Continue to monitor (5) Impaired glucose tolerance: Code(s): R73.02 - Impaired glucose tolerance (oral) Category: Medical Plan: Decrease the amount of carbohydrate intake, pasta, bread, rice and potatoes are all sugar and that is aside from all the sweet stuff, remember that fruits are good but they are Sweet also. (6) Essential hypertension: Code(s): I10 - Essential (primary) hypertension Category: Medical Plan: Continue with blood pressure medication. Decrease salt intake and exercise on lisinopril 10 mg once a day (7) Thoracic back pain: Code(s): M54.6 - Pain in thoracic spine Category: Medical Plan History of Present Illness The patient is a 79-year-old male presenting for a physical examination and management of chronic conditions. The patient has a history of impaired glucose tolerance and hypertension, managed with lifestyle modifications and lisinopril 10 mg daily. He monitors his diet, particularly reducing bread intake, and engages in regular physical activity, including brisk walking and light jogging. The patient underwent a prostatectomy in 2004 for prostate cancer and continues to follow up with urology. His last PSA was undetectable, and he plans to have another test in the coming months. He has a history of anemia of chronic disease, with blood work last performed in December 2023, and new tests are planned. The patient reports lumbar spinal stenosis and a recent thoracic vertebrae strain, which occurred after lifting a heavy object two months ago. He experiences occasional back spasms, which have improved, but he aggravated the condition recently during exercise. The patient has a torn rotator cuff in the right shoulder, confirmed by MRI, resulting from a work-related injury. He maintains good mobility with some weakness and is managing the condition with conservative measures, including physical therapy. In May 2024, the patient tested positive for COVID-19 after presenting with respiratory symptoms. He has since recovered without significant complications. The patient reports rosacea, which is managed with topical treatments as needed. 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 [place] - Exercise: Engages in brisk walking and light jogging several times a week - Diet: Monitors bread intake to manage weight - Alcohol: Consumes alcohol rarely, possibly once a month or less - Tobacco: Never smoked - Substance Use: Denies use of recreational drugs Review of Systems - General: Denies fever, chills, or weight loss - Cardiovascular: Denies chest pain, palpitations, or syncope - Respiratory: Denies dyspnea, cough, or wheezing - Gastrointestinal: Denies nausea, vomiting, diarrhea, or constipation - Neurological: Denies dizziness, headaches, or balance issues - Musculoskeletal: Reports occasional back spasms, denies joint pain or swelling - Dermatological: Reports rosacea, denies rashes or lesions Physical Exam General: Cooperative, healthy appearing, comfortable, no acute distress and well developed Orientation: Patient oriented x3 Limitations: No limitations Head: Normal to inspection Ears: Hearing grossly normal bilaterally, some wax noted in the right ear Nose: Normal external nose present Face and sinus: Normal facial exam Eyes: Appearance normal, both eyes and all related structures, some redness noted Neck: Normal visual inspection and Yes full ROM Respiratory: Normal respiratory effort and able to speak in complete sentences. Clear to auscultation bilaterally Cardiovascular: Regular rate and rhythm. Normal S1 and S2 GI: Normal to inspection. Soft to palpation and nontender Skin: No rashes or lesions noted Neuro: Patient oriented x3 Extremities: Normal to inspection, excellent mobility noted despite a torn rotator cuff in the right shoulder Results - Labs: Hemoglobin A1c 5.3% (normal <5.7%) - Imaging: MRI confirmed torn rotator cuff Plan Patient was informed and verbally consented to the use of an ambient scribe for clinic note documentation during this visit. 1. Impaired Glucose Tolerance The patient is advised to continue dietary modifications, focusing on reducing bread intake, and maintain regular physical activity to manage glucose levels. Regular monitoring of blood glucose levels is recommended, with follow-up appointments to assess control and adjust management as needed. 2. Hypertension The patient is currently on lisinopril 10 mg daily for blood pressure management. Continued adherence to medication and lifestyle modifications, including regular exercise and dietary adjustments, are advised to maintain optimal blood pressure control. 3. Prostate Cancer Status Post-Prostatectomy The patient is advised to continue regular follow-ups with urology, with the next PSA test planned in the coming months to monitor for recurrence. 4. Anemia Of Chronic Disease The patient requires updated blood work to assess current anemia status, with plans for further evaluation based on results. 5. Lumbar Spinal Stenosis The patient is advised to continue monitoring symptoms and engage in exercises that do not exacerbate back pain. Consideration for imaging studies if symptoms persist or worsen. 6. Rotator Cuff Tear The patient is managing the condition with conservative measures, including physical therapy, and is advised to continue these interventions. Surgical intervention may be considered if symptoms significantly worsen or mobility is severely impacted. 7. Covid-19 Infection (May 2024) The patient has recovered from COVID-19 without significant complications and is advised to continue monitoring for any residual symptoms. 8. Thoracic Vertebrae Strain The patient is advised to avoid activities that may exacerbate the condition and consider imaging if symptoms persist. 9. Rosacea The patient is advised to continue using topical treatments as needed to manage symptoms. Discussion Notes During the visit, we discussed the management of the patient's chronic conditions, including impaired glucose tolerance and hypertension. We reviewed the patient's history of prostate cancer and the importance of regular PSA monitoring. The patient was advised on the continuation of conservative management for the rotator cuff tear and the potential for surgical intervention if necessary. We also addressed the recent thoracic vertebrae strain and the need for imaging if symptoms persist. The importance of completing the shingles vaccination series was emphasized. Patient Instructions - Continue dietary modifications to manage glucose levels. - Maintain regular physical activity, including brisk walking and light jogging. - Adhere to prescribed medications, including lisinopril 10 mg daily. - Schedule follow-up appointments for blood work and PSA testing. - Monitor symptoms of thoracic vertebrae strain and avoid exacerbating activities. - Complete the shingles vaccination series. Orders: Orders Complete Blood Count Auto Diff Today I10 - Essential (primary) hypertension Comprehensive Met. Panel Today I10 - Essential (primary) hypertension Thyroid Stimulating Hormone Today I10 - Essential (primary) hypertension Prostate Specific Antigen Scr Today I10 - Essential (primary) hypertension XR thoracic spine 2V Today M54.6 - Pain in thoracic spine Free T4 (Free Thyroxine) Today I10 - Essential (primary) hypertension Lipid Panel Today E78.00 - Pure hypercholesterolemia, unspecified, I10 - Essential (primary) hypertension IRON PROFILE Today I10 - Essential (primary) hypertension Reticulocyte Count Today I10 - Essential (primary) hypertension Ferritin Today I10 - Essential (primary) hypertension Vitamin B12 and Folate Today I10 - Essential (primary) hypertension UA CC w/rflx Micro + Cult Today I10 - Essential (primary) hypertension, R30.0 - Dysuria Magnesium Today I10 - Essential (primary) hypertension
--- OUTSIDE RECORDS SUMMARY | 2024-12-17 11:51 | XMS_ITS | Clinical Summary ---
Author Organization [facility] Address [address] [place] [id number] Phone Care Team Providers Care Spray Gunner Name Role Phone Derick Braxton MD Primary Care Provider [phone] Allergies No known active allergies Medications LISINOPRIL ORAL Take 10 mg by mouth daily. Active lidocaine (LIDODERM) 5 % Place 1 patch onto the skin daily. Remove & Discard patch within 12 hours or as directed by MD 30 patch 01/27/2023 Active Active Problems Problem Noted Date Diagnosed Date Low back pain 04/18/2014 Overview (05/31/2014): Low back pain Spondylolisthesis 04/18/2014 Overview (05/31/2014): Spondylolisthesis Immunizations Immunization Administration Dates Next Due COVID-19 (Pre-01/30) Pfizer Vaccine, mRNA, PF 05/29/2020,05/07/2020 COVID-19 (Pre-01/30) Pfizer Vaccine, mRNA, keyla-sucrose, PF 06/01/2021 INFLUENZA, SPLIT VIRUS, TRIVALENT PF 01/23/2012 Influenza High-Dose Trivalen t Preservative Free IM 01/31/2024,01/26/2022,01/29/2021,2019,01/04/2020 Influenza Quadrivalent Prese rvative Free IM 01/26/2022,01/23/2018,01/25/2017,2015,02/02/2015 Influenza, Unspecified Formulation 01/02/2019,,01/30/2013 Tdap 02/04/2019 Social History Tobacco Use Types Packs/Day Years Used Date Smoking Tobacco: Never Smokeless Tobacco: Never Alcohol Use Standard Drinks/Week Comments Yes 0 (1 standard drink = 0.6 oz pur e alcohol) rarely Education Answer Date Recorded Are you interested in more education? Not on coreen e 08/04/2022 Are you concerned about learning? Not on file 08/04/2022 No 08/04/2022 No 08/04/2022 Digital Access Answer Date Recorded No 09/04/2022 No 09/04/2022 Reliable internet access at home? Not on file 09/04/2022 Device with a working camera? Not on file Intimate Partner Violence Answer Date R ecorded Are you denied basic needs s uch as food, clothing, or medical care? No 03/19/2023 In the past 12 months have y ou been in a relationship with a person who hurts, threatens, or tries to control you? No 03/19/2023 Are you denied basic needs s uch as food, clothing, or medical care? No 03/19/2023 In the past 12 months have y ou been in a relationship with a person who hurts, threatens, or tries to control you? No 03/19/2023 Sex and Gender Information Value Date Recorded Sex Assigned at Not on file Legal Sex Male 7:34 PM EST Gender Identity Not on file Sexual Orientation Not on file Last Filed Vital Signs Vital Sign Reading Time Taken Comments Blood Pressure 150/79 03/19/2023 9:14 AM EST Pulse 64 03/19/2023 9:14 AM EST Temperature 36.4 C (97.6 F) 03/19/2023 6:42 AM EST Respiratory Rate 20 03/19/2023 9:14 AM EST Oxygen Saturation 98% 03/19/2023 9:14 AM EST Inhaled Oxygen Concentration - - Weight 94.3 kg (208 lb) 03/19/2023 6:42 AM EST Height 182.9 cm (6') 03/19/2023 6:42 AM EST Body Mass Index 28.21 03/19/2023 6:42 AM EST Plan of Treatment Health Maintenance Due Date Last Done Comments CREATININE LEVEL 1946 LIPID PANEL 1946 POTASSIUM LEVEL 1946 DEPRESSION SCREENING 1958 HEPATITIS C SCREENING 1964 ZOSTER VACCINES (1 of 2) 1996 RSV VACCINE (1 - 1-dose 75+ series) 2021 COVID-19 VACCINE ( - 2023- season) 2023 06/01/2021, 05/29/2020, 05/07/2020 INFLUENZA VACCINE (#1) 2024 , 01/26/2022, 01/26/2022, Additional history exists Adult Td,Tdap Booster 02/04/2029 02/04/2019 PNEUMOCOCCAL VACCINES (50+ years) Completed 05/23/2022, 06/26/2017 SMOKING STATUS SCREENING (Once After 26 Yrs) Completed 08/19/2024 HEPATITIS A VACCINES Aged Out No long er eligible based on patient's age to complete this topic HIB VACCINES Aged Out No longer eligi ble based on patient's age to complete this topic MENINGOCOCCAL VACCINES (ACWY) Aged Out No longer eligible based on patient's age to complete this topic MENINGOCOCCAL VACCINES (B) Aged Out N o longer eligible based on patient's age to complete this topic Medical Devices Not on file Insurance MEDICARE PART A & B [employer] MEDICARE SUPPLEMENT MEDICARE PART A & B [facility] Monetate [facility] MEDICARE SUPPLEMENT MEDICARE PART A & B FOR LIFE MEDICARE SUPPLEMENT MEDICARE PART A & B [facility] FOR LIFE MEDICARE SUPPLEMENT MEDICARE PART A & B [facility] FOR LIFE MEDICARE SUPPLEMENT MEDICARE PART A & B [facility] FOR LIFE MEDICARE SUPPLEMENT MEDICARE PART A & B [employer] MEDICARE SUPPLEMENT MEDICARE PART A & B [employer] MEDICARE SUPPLEMENT MEDICARE PART A & B [facility] MEDICARE SUPPLEMENT [facility] Address: [address] [place] [address] [address] [place] [address] Advance Directives For more information, please contact: [phone] (9AM - 5PM [facility], Monday-Monday) Healthcare Agents on File Name Relationship Healthcare Agent Relationshi p Communication Olivia Zaidigabriel Spouse Other (no proxy form on file) Care Teams Spray Gunner Relationship Specialty Start Date End Date Derick Braxton MD [address] [place] [id number] PCP - General Internal Medicine 01/13/15 Additional Source Comments The information contained in this document represents components of the legal health record. It is not the complete legal health record.[facility]
--- OUTSIDE RECORDS SUMMARY | 2024-12-17 11:51 | XMS_ITS | Patient Health Record ---
Author Organization [facility] Address [address] [place] [id number] Care Team Providers Care Brusher Machine Name Role Phone Po Derick BERRIOS Primary Care Provider Ryan Hooper [phone] Reason For Referral No Information Medications Medication SIG (Take, Route, Fr equency, Duration) Notes Start Date End Date Status Lisinopril 10 MG 1 tablet Orally Once a day for 30 day(s) Active Multi For Him - as directed Orally Active Immunizations Vaccine Route Administration Date Status Comme nts Influenza Unknown 01/08/2019 Administered Social History Tobacco Use: Social History Observation Description Date Details (start date - stop date) Never Smoker NA - NA Tobacco Use/Smoking Question Answer Notes Patient is a nonsmoker Alcohol Screen Question Answer Notes Did you have a drink contain ing alcohol in the past year? Yes How often did you have a dri nk containing alcohol in the past year? Monthly or less (1 point) How many drinks did you have on a typical day when you were drinking in the past year? 1 or 2 drinks (0 point) How often did you have 6 or more drinks on one occasion in the past year? Never (0 point) Points 1 Interpretation Negative Section Notes: Nonsmoker; no sig alcohol Problems Problem Type SNOMED Code ICD Code Onset Dates Problem Status W/U Status Risk Notes Problem [id number] Encounter for screening for malignant neoplasm of colon (Z12.11) Active confirmed Problem [id number] Preprocedural examination (Z01.818) Active confirmed Plan Of Treatment Pending Test Test Name Order Date GI BIOPSY 11/27/2019 Future Test Test Name Order Date COLONOSCOPY 09/10/2019 Insurance Providers Payer Name Payer Address Payer Phone Subscriber Number Group Number Insured Name Patient Relationship to Insured Coverage Start Date Coverage End Date MEDICARE OF [employer] [address] [place] [address] [id number] NELSON SCHILLING Self - patient is the insured FOR LIFE [address] [place] [address] [id number] JENNIFER ADAMS NELSON Self - patient is the insured Medical (General) History Medical History History ICD Code Denies [place],DM,CVA,Lung disease,renal dise ase Negative screening colonoscopy in 9 except for a hyperplastic polyp. HTN Prostate cancer Surgical History Surgery Date(Month/Year) Radical prostatectomy with f/u radiation 2004 Carpal tunnel surgery both wrist 2014
== END 2024-12-17 11:21 | disposition home or self-care (01) ==
LOC: HO.HMCH 10:09
PROVIDERS: PCP Internal Medicine; Visit Provider Internal Medicine
DX: Z00.00 Encounter for general adult medical examination without abnormal findings (principal); C61 Malignant neoplasm of prostate; M75.121 Complete rotator cuff tear or rupture of right shoulder, not specified as traumatic; D63.8 Anemia in other chronic diseases classified elsewhere; R73.02 Impaired glucose tolerance (oral); I10 Essential (primary) hypertension; M54.6 Pain in thoracic spine

== ENCOUNTER → 2024-12-17 10:08 | Outpatient (BNVA) | payer MEDICARE, OTHER, SELFPAY | PROVIDERS: PCP Internal Medicine; Visit Provider Internal Medicine | DX: Z00.00 Encounter for general adult medical examination without abnormal findings (principal); M75.121 Complete rotator cuff tear or rupture of right shoulder, not specified as traumatic; C61 Malignant neoplasm of prostate; D63.8 Anemia in other chronic diseases classified elsewhere; R73.02 Impaired glucose tolerance (oral); M54.6 Pain in thoracic spine; I10 Essential (primary) hypertension | CPT/HCPCS: 99397 ==

== ENCOUNTER 2025-01-01 08:49 | Outpatient (REF) | payer MEDICARE, OTHER, SELFPAY ==
--- NOTE | ~2025-01-01 | XR_ITS ---
EXAMINATION: XR THORACIC SPINE CLINICAL INFORMATION: M54.6 - Pain in thoracic spine COMPARISON: None available. TECHNIQUE: 3 views of the thoracic spine were obtained. FINDINGS: There is mild convex left curvature of the lower thoracic spine. Vertebral body height and alignment is preserved otherwise. There is disc space narrowing which is most advanced in the mid to lower thoracic spine where narrowing is moderate There are also endplate osteophytes, also most pronounced at the midthoracic spine. XR/XR thoracic spine 2V IMPRESSION: Moderate degenerative disc disease in the thoracic spine approximately T8-9 and T9-10. Electronically signed by: Girma Charles MD 01/01/2025 12:50 PM EDT
[2025-01-01 09:16] LABS: MANUAL DIFF FLAG NO
[2025-01-01 09:43] LABS: Hematocrit 31.0 % (42.0-52.0); Hemoglobin 11.1 g/dl (14.0-18.0); Imm Gran Abs Auto 0.00 X10*3/uL (0.00-0.03); Imm Gran Pct Auto 0.0 % (0.0-0.4); Lymphocytes Absolute Auto 1.1 X10*3/uL (1.2-4.9); Mean Corpuscular HGB Conc 35.8 g/dl (31.0-36.0); Mean Corpuscular Hemoglobin 32.5 pg (27.0-33.0); Mean Corpuscular Volume 90.6 fL (80.0-98.0); NRBC Abs Auto 0.000 X10*3/uL (0.0-0.012); NRBC Pct Auto 0.0 /100WBC (0.0-0.2); Platelet Count 218 X10*3/uL (160-400); Red Blood Count 3.42 X10*6/uL (4.60-5.80); Reticulocytes Absolute 0.067 X10*6/uL (0.026-0.095); White Blood Count 3.6 X10*3/uL (4.8-10.8)
[2025-01-01 10:09] LABS: Appearance Urine Clear; Glucose Urine UA Negative (Negative); PH 6.0 (5.0-9.0); Specific Gravity - Urine 1.010 (1.005-1.025)
--- OUTSIDE RECORDS SUMMARY | 2025-01-01 10:10 | XMS_ITS | Clinical Summary ---
Author Organization [facility] Address [address] [place] [phone] Phone Care Team Providers Care Senior Asset Manager Name Role Phone Derick Braxton MD Primary Care Provider [phone] Allergies No known active allergies Medications LISINOPRIL [...] VACCINE (1 - 1-dose 75+ series) 2021 INFLUENZA VACCINE (#1) 2024 , 01/26/2022, 01/26/2022, Additional history exists COVID-19 VACCINE ( - 2024- season) 2024 06/01/2021, 05/29/2020, 05/07/2020 Adult Td,Tdap Booster 02/04/2029 02/04/2019 PNEUMOCOCCAL VACCINES [...] file Insurance MEDICARE PART A & B [employer] MEDICARE SUPPLEMENT MEDICARE PART A & B [facility] [place] [employer] [facility] MEDICARE SUPPLEMENT MEDICARE PART A & B FOR LIFE MEDICARE SUPPLEMENT MEDICARE PART A & B [facility] [place] FOR LIFE MEDICARE SUPPLEMENT MEDICARE PART A & B [facility] [place] FOR LIFE MEDICARE SUPPLEMENT MEDICARE PART A & B [facility] [place] FOR LIFE MEDICARE SUPPLEMENT MEDICARE PART A & B [employer] MED[employer]ARE SUPPLEMENT MEDICARE PART A & B [employer] MED[employer]ARE SUPPLEMENT MEDICARE PART A & B [facility] MEDIC[facility]PPLE[facility] Address: [address] [place] [address] [address] [place] [address] Advance Directives For more information, please contact: [phone] (9AM - 5PM [facility], Monday-Monday) Healthcare Agents on File Name Relationship Healthcare Agent Relationshi p Communication Olivia Zaidigabriel Spouse Other (no proxy form on file) Care Teams Senior Asset Manager Relationship Specialty Start Date End Date Derick Braxton MD [address] [place] [id number] PCP - General Internal Medicine 01/13/15 Additional Source Comments The information contained in this document represents components of the legal health record. It is not the complete legal health record.[facility]
--- OUTSIDE RECORDS SUMMARY | 2025-01-01 10:10 | XMS_ITS | Patient Health Record ---
Author Organization [facility] Address [address] [place] [id number] Care Team Providers Care Director Of Strategic Sales Name Role Phone Po Derick BERRIOS Primary Care Provider Ryan Hooper [phone] Reason For Referral No Information Medications Medication [...] Problem Status W/U Status Risk Notes Problem [id number] Encounter for screening for malignant neoplasm of colon (Z12.11) Active confirmed Problem [id number] Preprocedural examination (Z01.818) Active confirmed Plan Of Treatment Pending Test Test Name Order Date GI BIOPSY 11/27/2019 Future Test Test Name Order Date COLONOSCOPY 09/10/2019 Insurance Providers Payer Name Payer Address Payer Phone Subscriber Number Group Number Insured Name Patient Relationship to Insured Coverage Start Date Coverage End Date MEDICARE OF [employer] [address] [place] [address] [id number] NELSON SCHILLING Self - patient is the insured FOR LIFE [address] [place] [address] [id number] JENNIFER ADAMS NELSON Self - patient is the insured Medical (General) History Medical History History ICD Code Denies [place],DM,CVA,Lung disease,renal dise ase Negative screening colonoscopy in 9 except for a hyperplastic polyp. HTN Prostate cancer Surgical History Surgery Date(Month/Year) Radical prostatectomy with f/u radiation 2004 Carpal tunnel surgery both wrist 2014
[2025-01-01 10:36] LABS: Alanine Aminotransferase 20 U/L (0-40); Albumin Level 4.3 g/dL (3.5-5.0); Alkaline Phosphatase 59 U/L (39-117); Anion Gap 8 (12-20); Aspartate Amino Transferase 27 U/L (5-37); Blood Urea Nitrogen 25 mg/dL (9-16); Calcium 8.7 mg/dL (8.4-10.2); Carbon Dioxide 25 mmol/L (22-29); Chloride 110 mmol/L (96-108); Cholesterol 157 mg/dL (<200); Estimated Glomerular Filt Rate > 60; HDL Cholesterol 42 mg/dL (>40); Iron 101 mcg/dL (45-160); Magnesium 2.0 mg/dL (1.6-2.6); Percent Iron Saturation 39 % (15-50); Potassium 4.1 mmol/L (3.3-5.1); Sodium 139 mmol/L (135-145); Total Iron Binding Capacity 257 mcg/dL (228-428); Total Protein 6.6 g/dL (6.5-8.0); Triglycerides 51 mg/dL (<150); Unsaturated Iron Binding 156 ug/dL
[2025-01-01 10:57] LABS: Ferritin 179 ng/mL (20-250); Free T4 (Free Thyroxine) 0.84 ng/dL (0.71-1.85); Thyroid Stimulating Hormone 0.97 uIU/mL (0.32-4.0)
[2025-01-01 11:10] LABS: Folate 11.3 ng/mL (> or = 4.0); Vitamin B12 571 pg/mL (200-900)
== END 2025-01-01 08:50 | disposition home or self-care (01) ==
LOC: HO.LAB 08:49
PROVIDERS: PCP Internal Medicine; Visit Provider Internal Medicine
DX: I10 Essential (primary) hypertension (principal); E78.00 Pure hypercholesterolemia, unspecified; R30.0 Dysuria; M54.6 Pain in thoracic spine; Z12.5 Encounter for screening for malignant neoplasm of prostate
CPT/HCPCS: 36415; 72070; 80053; 80061; 81003; 82607; 82728; 82746; 83540; 83735; 84153; 84439; 84443; 85025; 85045

== ENCOUNTER → 2025-01-01 09:24 | Outpatient (BNV) | payer MEDICARE, OTHER, SELFPAY | PROVIDERS: PCP Internal Medicine; Visit Provider Radiology Diagnostic Radiology | DX: M51.34 Other intervertebral disc degeneration, thoracic region (principal) | CPT/HCPCS: 72070 ==

== ENCOUNTER 2025-01-14 14:19 | Outpatient (AMB) | payer OTHER, SELFPAY ==
[2025-01-14 14:24] VITALS: BP 110/66; PULSE 64; RESP 18; TEMP 36.2; O2SAT 97; BMI 28.1
--- NOTE | 2025-01-14 14:24 | A.OFFPC_ITS ---
Vital Signs 01/14/25 14:24 Height 6 ft Weight 207 lb 8 oz BMI 28.1 BP 110/66 Blood Pressure Location Lt brachial Position Sitting Respiration 18 Pulse 64 Pulse Source Pulse Oximeter Temp 97.1 F Temp Source Temporal Artery Scan Pulse Oximetry (%) 97 Oxygen Delivery Method Room Air Intake Visit Reasons: head injury Croze Machine Operator Required: No Accompanied by: Self / Same As Patient Allergies From PERCOCET Allergy (Mild, Uncoded 12/17/24 11:01) PER PT WIRED Tobacco use date assessed: 01/14/25 Fall risk assessment: No Falls in past year Last assessed Fall Risk: 01/14/25 Dental Screening Dental Screen Date: 01/14/25 Did you have a dental visit in the last 12 months?: Yes Did you have a dental problem in the last 6 months where you did not have access to dental care?: No Was dental information given to patient?: Patient has dentist HPI head injury HPI Details Presenting for evaluation following a head injury sustained during a work-related incident. 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 The patient fell and hit his head against a privacy screen, resulting in a mild concussion. Initial evaluation in the emergency room included a CT scan of the head, face, and cervical spine, which showed no acute findings. The patient experienced transient symptoms of dizziness and shakiness the day following the incident but reports no ongoing symptoms such as headaches, vision changes, nausea, or vomiting. The patient denies any memory issues, confusion, or sensitivity to light and sound. The patient maintains an active lifestyle, including walking two miles three to four times a week. [facility] Medical History Acute respiratory disease Polymyalgia rheumatica Knee osteoarthritis Renal cyst Prostate cancer Arthritis HTN (hypertension) Chronic low back pain with left-sided sciatica Pre-op evaluation Surgical History History of cataract extraction Hx of colonoscopy H/O prostatectomy History of carpal tunnel release Social History Housing: Apartment Alcohol intake: current Alcohol intake frequency: holidays/special occasions only Comment: once a month 1 glass, Patient Tobacco Use Status: Never used Tobacco Tobacco use type: Cigarette e-Cigarette/Vaping Use: Never Used Second Hand Smoke Exposure: No service: No Current occupational status: retired 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, 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 Cognitive needs: No Hearing needs: No Vision needs: No Questionnaire Thrive Questionnaire Date Thrive assessed: 12/17/24 I am a: Patient What is your living situation today?: I have a steady place to live Within the past 12 months, did the food you bought not last and you didn't have the money to get more?: Never true Within the past 12 months, did you worry whether your food would run out before you got money to buy more?: Never true Do you have trouble paying for medicines?: No Do you have trouble getting transportation to medical appointments?: No Do you have trouble paying your heating and electricity bill?: No Do you have trouble taking care of your child, family member or friend?: No Do you have trouble with day-to-day activities such as bathing, preparing meals, shopping, managing finances, etc.?: No Are you currently unemployed and looking for a job?: No Are you interested in more education?: No Please select the resources that you would like help with: None Currently or been in a relationship where the following occur: No concerns reported THRIVE Score: 0 AUDIT C Alcohol Use Questionnaire (AUDIT-C) 2. How many drinks containing alcohol do you have on a typical day when you are drinking?: 1 or 2 3. How often do you have six or more drinks on one occasion?: Never Total Score: 0 DAVID-7 AMB Questionnaire DAVID-7 Date DAVID - 7 assessed: 12/17/24 Source: Developed by Drs. Ryan Llamas, Yovana Orozco, Harinder Bailey and colleagues, with an educational leo from [employer]. Review of Systems Const Denies body aches, Denies chills, Denies fever(s), Denies headache(s) and Denies poor appetite Eyes Reports no additional complaints ENT Denies dysphagia, Denies dizziness, Denies headache(s) and Denies odynophagia Card Denies chest pain, Denies syncope, Denies edema, Denies irregular heart rhythm, Denies lightheadedness and Denies dyspnea Resp Denies cough and Denies dyspnea GI Denies abdominal pain, Denies constipation, Denies dysphagia, Denies diarrhea, Denies nausea, Denies odynophagia and Denies vomiting Reports no additional complaints Musc Reports no additional complaints and Denies abnormal gait Skin/Breast Reports system reviewed and no additional complaints, except as documented Neuro Denies abnormal gait, Denies dizziness, Denies syncope and Denies headache(s) Psych Reports no additional complaints Physical exam (Primary Care) Vital Signs: Last Vital Signs Temp 97.1 F 01/14/25 14:24 Pulse 64 01/14/25 14:24 Resp 18 01/14/25 14:24 BP 110/66 01/14/25 14:24 Pulse Ox 97 01/14/25 14:24 Oxygen Delivery Method Room Air 01/14/25 14:24 BMI result Body Mass Index 28.1 Tobacco/Smoking Status: Tobacco use Status Tobacco use date assessed 01/14/25 01/14/25 14:27 Patient Tobacco Use Status Never used Tobacco 01/14/25 14:27 Tobacco use type Cigarette 01/14/25 14:27 e-Cigarette/Vaping Use Never Used 01/14/25 14:27 Thrive Assessment: Date of Thrive Assessment Date Thrive assessed 12/17/24 01/14/25 14:27 Currently or been in a relationship where the following occur: No concerns reported Const General: cooperative, healthy appearing, comfortable and no acute distress Orientation/consciousness: patient oriented x3 HENMT Head: Yes normocephalic Ears: hearing grossly normal bilaterally General nose exam: Normal external nose present Eyes General: appearance normal, both eyes and all related structures Conjunctivae: conjunctivae normal Pupils: Equal, round and reactive pupils present Neck Neck: Yes full ROM and Yes no lymphadenopathy Resp Effort & Inspection: normal respiratory effort Auscultation: clear to auscultation bilaterally, no crackles, no rales, no rhonchi and no wheezes Cardio Rate: regular rate Rhythm: regular rhythm Skin General skin exam: no rashes or lesions noted Neuro General: patient oriented x3 Cranial nerves: Yes CN's II-XII intact bilaterally, Yes Facial sensation intact/muscles of mastication intact, Yes Equal, round and reactive pupils present, Yes Normal accommodation reflex present, Yes Bilaterally intact EOM present, Yes Nystagmus not present, Yes Normal facial strength present, Yes Midline tongue present and Yes Ability to bilaterally elevate shoulders present Cognition (Neuro): normal cognition Gait exam (Neuro): Normal gait present Motor exam (neuro): 5/5 motor strength present throughout Coordination: [id number] test normal Romberg Test: Negative Extrem General: Yes normal to inspection, Yes full ROM and No edema Psych Affect: normal affect Attitude: cooperative Insight: Good insight present (Psych) Judgement: Good judgement present (Psych) Coding Level of Care Code Est Pt Level 3 (52313) Diagnoses Head injury S09.90XA Assessment & Plan Assessment & Plan (1) Head injury: Code(s): S09.90XA - Unspecified injury of head, initial encounter Category: Medical Plan: The patient is advised to avoid activities that could lead to another head injury for at least a month to prevent worsening of the concussion. He is cleared to return to work with the restriction of avoiding physical interventions that could result in head trauma. A follow-up note will be sent to his occupational health provider to confirm his work status and restrictions. Plan This note was constructed using voice recognition software. 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 Total time spent caring for the patient today was 20 minutes. This includes time spent before the visit reviewing the chart, time spent during the visit, and time spent after the visit and documentation. Patient was informed and verbally consented to the use of an ambient scribe for clinic note documentation during this visit.
--- OUTSIDE RECORDS SUMMARY | 2025-01-14 17:41 | XMS_ITS | Clinical Summary ---
Author Organization [facility] Address [address] [place] [phone] Phone Care Team Providers Care Main Line Assembler Name Role Phone Derick Braxton MD Primary Care Provider [phone] Allergies No known active allergies Medications LISINOPRIL ORAL Take 10 mg by mouth daily. Active lidocaine (LIDODERM) 5 % Place 1 patch onto the skin daily. Remove & Discard patch within 12 hours or as directed by 30 patch 01/27/2023 Active Active Problems Problem Noted Date Diagnosed Date Low back pain 04/18/2014 Overview (05/31/2014): Low back pain Spondylolisthesis 04/18/2014 Overview (05/31/2014): Spondylolisthesis Encounters Date Type Department Care Team Description 01/07/2025 6:19 PM EDT - 01/07/2025 10:49 PM EDT Emergency [facility] Emergency Department [address] [place] [address] Natalie Patel MD Discharge Disposition: Home or Self Care 01/07/2025 Procedure Pass [facility] Radiology [address] [place] [address] 01/07/2025 Procedure Pass [facility] Radiology [address] [place] [address] 01/07/2025 Procedure Pass [facility] Radiology [address] [place] [address] from Last 3 Months Immunizations Immunization Administration Dates Next Due COVID-19 [...] on file 08/04/2022 No 08/04/2022 No 08/04/2022 Food Answer Date Recorded Within the past 6 months we worried whether our food would run out before we got money to buy more. Never True 01/07/2025 Within the past 6 months the food we bought just didn't last and we didn't have enough money to get more. Never True Residential Stability Answer Date Recor ded What is your housing situation today? I have alton sing 01/07/2025 How many times have you move d in the past 12 months? Zero (I did not move) 01/07/2025 Paying for Meds Answer Date Recorded Do you have trouble paying for medicines? No 01/07/2025 Paying Utility Bills Answer Date Record ed Do you have trouble paying your heating or elect ricity bill? No 01/07/2025 Transportation Answer Date Recorded Has the lack of transportati on kept you from medical appointments or from getting medications? No 01/07/2025 Digital Access Answer Date Recorded No 01/07/2025 Yes 01/07/2025 Do you have reliable internet access at home? Ye s 01/07/2025 Do you have a device (e.g., phone, tablet, computer) with a working camera? Yes 01/07/2025 Intimate Partner Violence Answer Date R ecorded Are you denied basic needs s uch as food, clothing, or medical care? No 01/07/2025 In the past 12 months have y ou been in a relationship with a person who hurts, threatens, or tries to control you? No 01/07/2025 Are you denied basic needs s uch as food, clothing, or medical care? No 01/07/2025 In the past 12 months have y ou been in a relationship with a person who hurts, threatens, or tries to control you? No 01/07/2025 Sex and Gender Information Value Date Recorded Sex Assigned at Male 01/07/2025 7:08 PM EDT Legal Sex Male 7:34 PM EST Gender Identity Male 01/07/2025 7:08 PM EDT Sexual Orientation Straight 01/07/2025 7: 08 PM EDT Last Filed Vital Signs Vital Sign Reading Time Taken Comments Blood Pressure 124/75 01/07/2025 10:48 PM EDT Pulse 75 01/07/2025 10:48 PM EDT Temperature 36.8 C (98.2 F) 01/07/2025 10:48 PM EDT Respiratory Rate 18 01/07/2025 10:48 PM EDT Oxygen Saturation 100% 01/07/2025 10:48 PM EDT Inhaled Oxygen Concentration - - Weight 94.3 kg (208 lb) 03/19/2023 6:42 AM EST Height 182.9 cm (6') 03/19/2023 6:42 AM EST Body Mass Index 28.21 03/19/2023 6:42 AM EST Plan of Treatment Health Maintenance Due Date Last Done Comments CREATININE LEVEL 1946 LIPID PANEL 1946 POTASSIUM LEVEL 1946 DEPRESSION SCREENING 1958 HEPATITIS C SCREENING 1964 ZOSTER VACCINES (2 of 3) 11/05/2015 09/10/2015 RSV VACCINE (1 - 1-dose 75+ series) 2021 INFLUENZA VACCINE (#1) 2024 , 01/26/2022, 01/26/2022, Additional history exists COVID-19 VACCINE ( - 2024- season) 2024 06/01/2021, 05/29/2020, 05/07/2020 Adult Td,Tdap Booster 02/04/2029 02/04/2019, 014 PNEUMOCOCCAL VACCINES (50+ years) Completed 05/23/2022, 06/26/2017 [...] this topic Medical Devices Not on file Procedures Procedure Name Priority Date/Time Associated Diagnosis Comments XR SHOULDER 2 VIEWS (RIGHT) Routine 01/07/2025 8:[address] CERVICAL SPINE WITHOUT CONTRAST Routine 01/07/2025 8:[address] FACE WITHOUT CONTRAST Routine 01/07/2025 8:[address] HEAD WITHOUT CONTRAST Routine 01/07/2025 8:10 PM EDT XR WRIST 3 OR MORE VIEWS (RIGHT) Routine 01/07/2025 8:02 PM EDT XR KNEE 1-2 VIEWS (RIGHT) Routine 01/07/2025 8:01 PM EDT from Last 3 Months Results * XR SHOULDER 2 VIEWS (RIGHT) (01/07/2025 8:26 PM EDT) Anatomical Region Laterality Modality Shoulder Right Computed Radiogr aphy 01/07/2025 10:1 4 PM EDT Impressions 01/07/2025 10:22 PM EDT No fracture or dislocation. Narrative 01/07/2025 10:22 PM EDT XR SHOULDER 2 OR MORE VIEWS (RIGHT) Referring clinician's provided indication for this examination in [facility]: Pain; S/P Fall COMPARISON: XR SHOULDER 2 OR MORE VIEWS (RIGHT) FINDINGS: No fracture. Alignment is maintained. Mild degenerative changes of the glenohumeral and acromioclavicular joints. Procedure Note uJan Gurrola MD - 01/07/2025 XR SHOULDER 2 OR MORE VIEWS (RIGHT) Referring clinician's provided indication for this examination in [facility]:Pain; S/P Fall COMPARISON: XR SHOULDER 2 OR MORE VIEWS (RIGHT) FINDINGS: No fracture. Alignment is maintained. Mild degenerative changes of theglenohumeral and acromioclavicular joints. IMPRESSION: No fracture or dislocation. us Natalie Patel MD IMG XR UPPER EXTREMITY Final Result * CT CERVICAL SPINE WITHOUT CONTRAST (01/07/2025 8:10 PM EDT) Anatomical Region Laterality Modality C-spine Computed Tomogra phy 01/07/2025 9:27 PM EDT Impressions 01/07/2025 10:04 PM EDT 1. No acute intracranial findings. 2. No acute maxillofacial fracture. 3. No acute fracture or traumatic malalignment of the cervical spine. ATTESTATION: Janelle Cortés, as teaching physician have reviewed the images, if any, for this patient's exam, and if necessary, have edited the report originally created by Rhona Rosario. Narrative 01/07/2025 10:[address] CERVICAL SPINE WITHOUT CONTRAST, CT FACE WITHOUT CONTRAST, CT HEAD WITHOUT CONTRAST Referring clinician's provided indication for this examination in [facility]: * Neck trauma (Age >= 65y) TECHNIQUE: CTs of the head, face, and cervical spine were performed without intravenous contrast using tailored dose modulation techniques. Images were reconstructed in the axial, coronal, and sagittal planes. COMPARISON: None FINDINGS: HEAD: Brain Parenchyma: No midline shift, mass effect, parenchymal hemorrhage, or evidence of acute territorial infarct. Hypodensities in the periventricular white matter, likely a manifestation of chronic small vessel disease. Ventricular System and Extra-Axial Spaces: No extra-axial fluid collections. Basal cisterns are patent. No hydrocephalus. Osseous and Extracranial Structures: No calvarial fracture or significant soft tissue hematoma. FACE: Assessment of alveolar arch is limited by the beam hardening artifact from the dental hardware. Bones: No acute fracture. Orbits: No orbital injury. Bilateral lens replacements. Paranasal Sinuses and Mastoids: Clear. Soft Tissues: No significant soft tissue hematoma. CERVICAL SPINE: Alignment and Vertebrae: No acute fracture or traumatic malalignment. Slight reversal of the normal cervical lordosis. Minimal anterolisthesis of C4 on C5, and minimal retrolisthesis of C5 on C6. Discs and Endplates: Multilevel degenerative change. Craniocervical Junction: Alignment is normal. No fracture. Other Findings: No prevertebral soft tissue swelling. Atherosclerotic calcifications of the bilateral carotid bulbs. No apical pneumothorax. Procedure Note Janelle Orellana MD - 01/07/2025 CT CERVICAL SPINE WITHOUT CONTRAST, CT FACE WITHOUT CONTRAST, CT HEADWITHOUT CONTRAST Referring clinician's provided indication for this examination in Epic: *Neck trauma (Age >= 65y) TECHNIQUE: CTs of the head, face, and cervical spine were performedwithout intravenous contrast using tailored dose modulation techniques.Images were reconstructed in the axial, coronal, and sagittal planes. COMPARISON: None FINDINGS: HEAD: Brain Parenchyma: No midline shift, mass effect, parenchymal hemorrhage,or evidence of acute territorial infarct. Hypodensities in theperiventricular white matter, likely a manifestation of chronic smallvessel disease. Ventricular System and Extra-Axial Spaces: No extra-axial fluidcollections. Basal cisterns are patent. No hydrocephalus. Osseous and Extracranial Structures: No calvarial fracture or significantsoft tissue hematoma. FACE: Assessment of alveolar arch is limited by the beam hardeningartifact from the dental hardware. Bones: No acute fracture. Orbits: No orbital injury. Bilateral lens replacements. Paranasal Sinuses and Mastoids: Clear. Soft Tissues: No significant soft tissue hematoma. CERVICAL SPINE: Alignment and Vertebrae: No acute fracture or traumatic malalignment.Slight reversal of the normal cervical lordosis. Minimal anterolisthesisof C4 on C5, and minimal retrolisthesis of C5 on C6. Discs and Endplates: Multilevel degenerative change. Craniocervical Junction: Alignment is normal. No fracture. Other Findings: No prevertebral soft tissue swelling. Atheroscleroticcalcifications of the bilateral carotid bulbs. No apical pneumothorax. IMPRESSION: 1. No acute intracranial findings. 2. No acute maxillofacial fracture. 3. No acute fracture or traumatic malalignment of the cervical spine. ATTESTATION: Janelle Cortés, as teaching physician have reviewed the images,if any, for this patient's exam, and if necessary, have edited the reportoriginally created by Rhona Rosario. us Natalie Patel MD IMG CT XSPECIALTY ORDERABLES Final Result * CT FACE WITHOUT CONTRAST (01/07/2025 8:10 PM EDT) Anatomical Region Laterality Modality Face Computed Tomogra phy 01/07/2025 9:27 PM EDT Impressions 01/07/2025 10:04 PM EDT 1. No acute intracranial findings. 2. No acute maxillofacial fracture. 3. No acute fracture or traumatic malalignment of the cervical spine. ATTESTATION: Janelle Cortés, as teaching physician have reviewed the images, if any, for this patient's exam, and if necessary, have edited the report originally created by Rhona Rosario. Narrative 01/07/2025 10:[address] CERVICAL SPINE WITHOUT CONTRAST, CT FACE WITHOUT CONTRAST, CT HEAD WITHOUT CONTRAST Referring clinician's provided indication for this examination in Epic: * Neck trauma (Age >= 65y) TECHNIQUE: CTs of the head, face, and cervical spine were performed without intravenous contrast using tailored dose modulation techniques. Images were reconstructed in the axial, coronal, and sagittal planes. COMPARISON: None FINDINGS: HEAD: Brain Parenchyma: No midline shift, mass effect, parenchymal hemorrhage, or evidence of acute territorial infarct. Hypodensities in the periventricular white matter, likely a manifestation of chronic small vessel disease. Ventricular System and Extra-Axial Spaces: No extra-axial fluid collections. Basal cisterns are patent. No hydrocephalus. Osseous and Extracranial Structures: No calvarial fracture or significant soft tissue hematoma. FACE: Assessment of alveolar arch is limited by the beam hardening artifact from the dental hardware. Bones: No acute fracture. Orbits: No orbital injury. Bilateral lens replacements. Paranasal Sinuses and Mastoids: Clear. Soft Tissues: No significant soft tissue hematoma. CERVICAL SPINE: Alignment and Vertebrae: No acute fracture or traumatic malalignment. Slight reversal of the normal cervical lordosis. Minimal anterolisthesis of C4 on C5, and minimal retrolisthesis of C5 on C6. Discs and Endplates: Multilevel degenerative change. Craniocervical Junction: Alignment is normal. No fracture. Other Findings: No prevertebral soft tissue swelling. Atherosclerotic calcifications of the bilateral carotid bulbs. No apical pneumothorax. Procedure Note Janelle Orellana MD - 01/07/2025 CT CERVICAL SPINE WITHOUT CONTRAST, CT FACE WITHOUT CONTRAST, CT HEADWITHOUT CONTRAST Referring clinician's provided indication for this examination in Epic: *Neck trauma (Age >= 65y) TECHNIQUE: CTs of the head, face, and cervical spine were performedwithout intravenous contrast using tailored dose modulation techniques.Images were reconstructed in the axial, coronal, and sagittal planes. COMPARISON: None FINDINGS: HEAD: Brain Parenchyma: No midline shift, mass effect, parenchymal hemorrhage,or evidence of acute territorial infarct. Hypodensities in theperiventricular white matter, likely a manifestation of chronic smallvessel disease. Ventricular System and Extra-Axial Spaces: No extra-axial fluidcollections. Basal cisterns are patent. No hydrocephalus. Osseous and Extracranial Structures: No calvarial fracture or significantsoft tissue hematoma. FACE: Assessment of alveolar arch is limited by the beam hardeningartifact from the dental hardware. Bones: No acute fracture. Orbits: No orbital injury. Bilateral lens replacements. Paranasal Sinuses and Mastoids: Clear. Soft Tissues: No significant soft tissue hematoma. CERVICAL SPINE: Alignment and Vertebrae: No acute fracture or traumatic malalignment.Slight reversal of the normal cervical lordosis. Minimal anterolisthesisof C4 on C5, and minimal retrolisthesis of C5 on C6. Discs and Endplates: Multilevel degenerative change. Craniocervical Junction: Alignment is normal. No fracture. Other Findings: No prevertebral soft tissue swelling. Atheroscleroticcalcifications of the bilateral carotid bulbs. No apical pneumothorax. IMPRESSION: 1. No acute intracranial findings. 2. No acute maxillofacial fracture. 3. No acute fracture or traumatic malalignment of the cervical spine. ATTESTATION: Janelle Cortés, as teaching physician have reviewed the images,if any, for this patient's exam, and if necessary, have edited the reportoriginally created by Rhona Rosario. Natalie Patel MD [facility] CT HEAD/NECK Final Result * CT HEAD WITHOUT CONTRAST (01/07/2025 8:10 PM EDT) Anatomical Region Laterality Modality Head Computed Tomogra phy 01/07/2025 9:27 PM EDT Impressions 01/07/2025 10:04 PM EDT 1. No acute intracranial findings. 2. No acute maxillofacial fracture. 3. No acute fracture or traumatic malalignment of the cervical spine. ATTESTATION: Janelle Cortés, as teaching physician have reviewed the images, if any, for this patient's exam, and if necessary, have edited the report originally created by Rhona Rosario. Narrative 01/07/2025 10:[address] CERVICAL SPINE WITHOUT CONTRAST, CT FACE WITHOUT CONTRAST, CT HEAD WITHOUT CONTRAST Referring clinician's provided indication for this examination in Epic: * Neck trauma (Age >= 65y) TECHNIQUE: CTs of the head, face, and cervical spine were performed without intravenous contrast using tailored dose modulation techniques. Images were reconstructed in the axial, coronal, and sagittal planes. COMPARISON: None FINDINGS: HEAD: Brain Parenchyma: No midline shift, mass effect, parenchymal hemorrhage, or evidence of acute territorial infarct. Hypodensities in the periventricular white matter, likely a manifestation of chronic small vessel disease. Ventricular System and Extra-Axial Spaces: No extra-axial fluid collections. Basal cisterns are patent. No hydrocephalus. Osseous and Extracranial Structures: No calvarial fracture or significant soft tissue hematoma. FACE: Assessment of alveolar arch is limited by the beam hardening artifact from the dental hardware. Bones: No acute fracture. Orbits: No orbital injury. Bilateral lens replacements. Paranasal Sinuses and Mastoids: Clear. Soft Tissues: No significant soft tissue hematoma. CERVICAL SPINE: Alignment and Vertebrae: No acute fracture or traumatic malalignment. Slight reversal of the normal cervical lordosis. Minimal anterolisthesis of C4 on C5, and minimal retrolisthesis of C5 on C6. Discs and Endplates: Multilevel degenerative change. Craniocervical Junction: Alignment is normal. No fracture. Other Findings: No prevertebral soft tissue swelling. Atherosclerotic calcifications of the bilateral carotid bulbs. No apical pneumothorax. Procedure Note Janelle Orellana MD - 01/07/2025 CT CERVICAL SPINE WITHOUT CONTRAST, CT FACE WITHOUT CONTRAST, CT HEADWITHOUT CONTRAST Referring clinician's provided indication for this examination in Epic: *Neck trauma (Age >= 65y) TECHNIQUE: CTs of the head, face, and cervical spine were performedwithout intravenous contrast using tailored dose modulation techniques.Images were reconstructed in the axial, coronal, and sagittal planes. COMPARISON: None FINDINGS: HEAD: Brain Parenchyma: No midline shift, mass effect, parenchymal hemorrhage,or evidence of acute territorial infarct. Hypodensities in theperiventricular white matter, likely a manifestation of chronic smallvessel disease. Ventricular System and Extra-Axial Spaces: No extra-axial fluidcollections. Basal cisterns are patent. No hydrocephalus. Osseous and Extracranial Structures: No calvarial fracture or significantsoft tissue hematoma. FACE: Assessment of alveolar arch is limited by the beam hardeningartifact from the dental hardware. Bones: No acute fracture. Orbits: No orbital injury. Bilateral lens replacements. Paranasal Sinuses and Mastoids: Clear. Soft Tissues: No significant soft tissue hematoma. CERVICAL SPINE: Alignment and Vertebrae: No acute fracture or traumatic malalignment.Slight reversal of the normal cervical lordosis. Minimal anterolisthesisof C4 on C5, and minimal retrolisthesis of C5 on C6. Discs and Endplates: Multilevel degenerative change. Craniocervical Junction: Alignment is normal. No fracture. Other Findings: No prevertebral soft tissue swelling. Atheroscleroticcalcifications of the bilateral carotid bulbs. No apical pneumothorax. IMPRESSION: 1. No acute intracranial findings. 2. No acute maxillofacial fracture. 3. No acute fracture or traumatic malalignment of the cervical spine. ATTESTATION: Janelle Cortés, as teaching physician have reviewed the images,if any, for this patient's exam, and if necessary, have edited the reportoriginally created by Rhona Rosario. us Natalie Patel MD IMG CT HEAD/NECK Final Result * XR WRIST 3 OR MORE VIEWS (RIGHT) (01/07/2025 8:02 PM EDT) Anatomical Region Laterality Modality Wrist Right Computed Radiogr aphy 01/07/2025 9:09 PM EDT Impressions 01/07/2025 9:25 PM EDT No fracture or dislocation. ATTESTATION: Janelle Cortés, as teaching physician have reviewed the images, if any, for this patient's exam, and if necessary, have edited the report originally created by Rhona Rosario. Narrative 01/07/2025 9:25 PM EDT XR WRIST 3 OR MORE VIEWS (RIGHT) Referring clinician's provided indication for this examination in Epic: Infection; Trauma COMPARISON: None FINDINGS: No fracture. Normal alignment. Normal joint spaces. Nonspecific cystic changes in the scaphoid proximal pole and the ulnar styloid. No soft tissue swelling. Procedure Note Janelle Orellana MD - 01/07/2025 XR WRIST 3 OR MORE VIEWS (RIGHT) Referring clinician's provided indication for this examination in Epic:Infection; Trauma COMPARISON: None FINDINGS: No fracture. Normal alignment. Normal joint spaces. Nonspecific cysticchanges in the scaphoid proximal pole and the ulnar styloid. No softtissue swelling. IMPRESSION: No fracture or dislocation. ATTESTATION: Janelle Cortés, as teaching physician have reviewed the images,if any, for this patient's exam, and if necessary, have edited the reportoriginally created by Rhona Rosario. us Natalie ELDER XR UPPER EXTREMITY Final Result * XR KNEE 1-2 VIEWS (RIGHT) (01/07/2025 8:01 PM EDT) Anatomical Region Laterality Modality Knee Right Computed Radiogr aphy 01/07/2025 9:26 PM EDT Impressions 01/07/2025 9:34 PM EDT No fracture or dislocation. ATTESTATION: Janelle Cortés, as teaching physician have reviewed the images, if any, for this patient's exam, and if necessary, have edited the report originally created by Rhona Rosario. Narrative 01/07/2025 9:34 PM EDT XR KNEE 1-2 VIEWS (RIGHT) Referring clinician's provided indication for this examination in Epic: Pain; S/P Fall COMPARISON: None FINDINGS: Right Knee: No fracture. Normal alignment. Mild degenerative changes with narrowing of the medial tibiofemoral joint space. No effusion. Procedure Note Janelle Orellana MD - 01/07/2025 XR KNEE 1-2 VIEWS (RIGHT) Referring clinician's provided indication for this examination in Epic:Pain; S/P Fall COMPARISON: None FINDINGS: Right Knee: No fracture. Normal alignment. Mild degenerative changes withnarrowing of the medial tibiofemoral joint space. No effusion. IMPRESSION: No fracture or dislocation. ATTESTATION: Janelle Cortés, as teaching physician have reviewed the images,if any, for this patient's exam, and if necessary, have edited the reportoriginally created by Rhona Rosario. Natalie Patel MD IMG XR LOWER EXTREMITY Final Result from Last 3 Months Insurance MEDICARE PART A & B [facility] Remote [facility] MEDICARE SUPPLEMENT [facility] Address: [address] [address] MEDICARE PART A & B [facility] MEDICARE SUPPLEMENT [facility] Address: [address] [address] MEDICARE PART A & B [employer] MEDICARE SUPPLEMENT [facility] Address: [address] [address] MEDICARE PART A & B [employer] MEDICARE SUPPLEMENT [facility] Address: [address] [address] MEDICARE PART A & B [employer] MEDICARE SUPP[facility]MENT [facility] Address: [address] [address] MEDICARE PART A & B [employer] MEDICARE SUPPLEMENT [facility] Address: [address] [address] MEDICARE PART A & B [employer] MEDICARE SUPPLEMENT [facility] Address: [address] [address] MEDICARE PART A & B [employer] MEDICARE SUPPLEMENT MEDICARE PART A & B [facility] MEDICARE SUPPLEMENT [facility] Address: [address] [address] [facility] [address] [place] [address] Advance Directives For more information, please contact: [phone] (9AM - 5PM [facility], Monday-Monday) Healthcare Agents on File Name Relationship Healthcare Agent Relationshi p Communication Olivia Sina Spouse Other (no proxy form on file) Care Teams Main Line Assembler Relationship Specialty Start Date End Date Derick Braxton MD [address] [place] [id number] PCP - General Internal Medicine 01/13/15 Additional Source Comments The information contained in this document represents components of the legal health record. It is not the complete legal health record.[facility]
--- OUTSIDE RECORDS SUMMARY | 2025-01-14 17:41 | XMS_ITS | Encounter Summary ---
Author Organization [facility] Address [address] [place] [address] Phone Care Team Providers Care Back Up Worker Name Role Phone Derick Braxton MD Primary Care Provider [phone] Encounter Details Date Type Department Care Team (Late st Contact Info) Description 01/07/2025 Procedure Pass [facility] Radiology [address] [place], [place] [id number] Social History Tobacco Use Types Packs/Day Years [...] Orientation Straight 01/07/2025 7: 08 PM EDT documented as of this encounter Functional Status * Calculated C-SSRS Risk Score (Lifetime/Recent) Answer Date of Assessment Author No Risk Indicated 01/07/2025 6:10 PM EDT Vania Coley, ISMA * [place] Suicide Severity Rating Scale (Screener/Recent Self-Report) Question Answer Date of Assessment Author 1. Wish to be (Past 1 Month) No 025 6:10 PM EDT Vania Coley, ISMA 2. Non-Specific Active Suici gardenia Thoughts (Past 1 Month) No 01/07/2025 6:10 PM EDT Vania Coley, ISMA 6. Suicidal Behavior (Lifetime) No 6:10 PM EDT Vania Coley, ISMA documented as of this encounter Plan of Treatment Not on file documented as of this encounter Visit Diagnoses Not on filedocumented in this encounter Care Teams Back Up Worker Relationship Specialty Start Date End Date Derick Braxton MD [address] [place] [address] [place] [phone] PCP - General Internal Medicine 01/13/15 documented as of this encounter Additional Source Comments The information contained in this document represents components of the legal health record. It is not the complete legal health record.[facility]
--- OUTSIDE RECORDS SUMMARY | 2025-01-14 17:41 | XMS_ITS | Encounter Summary ---
Author Organization [facility] Address [address] [place] [address] Phone Care Team Providers Care Hand Icer Name Role Phone Derick Braxton MD Primary Care Provider [phone] Encounter Details Date Type Department Care Team (Late st Contact Info) Description 01/07/2025 Procedure Pass [facility] Radiology [address] [place], [place] [id number] Social History Tobacco Use Types Packs/Day Years [...] 6:10 PM EDT Vania Coley, ISMA * [place] Suicide Severity Rating Scale (Screener/Recent Self-Report) Question Answer Date of Assessment Author 1. Wish to be (Past 1 Month) No 025 6:10 PM EDT Vania Coley, ISMA 2. Non-Specific Active Suici gardenia Thoughts (Past 1 Month) No 01/07/2025 6:10 PM EDT Vania Coley, ISMA 6. Suicidal Behavior (Lifetime) No 6:10 PM EDT Vanai Coley, ISMA documented as of this encounter Plan of Treatment Not on file documented as of this encounter Visit Diagnoses Not on filedocumented in this encounter Care Teams Hand Icer Relationship Specialty Start Date End Date Derick Braxton MD [address] [place] [address] [place] [phone] PCP - General Internal Medicine 01/13/15 documented as of this encounter Additional Source Comments The information contained in this document represents components of the legal health record. It is not the complete legal health record.[facility]
--- OUTSIDE RECORDS SUMMARY | 2025-01-14 17:41 | XMS_ITS | Patient Health Record ---
Author Organization [facility] Address [address] [place] [phone] Care Team Providers Care Drama Professor Name Role Phone Po Derick BERRIOS Primary Care Provider Ryan Hooper [phone] Reason For Referral No Information Medications Medication [...] Problem Status W/U Status Risk Notes Problem [id number] Encounter for screening for malignant neoplasm of colon (Z12.11) Active confirmed Problem [id number] Preprocedural examination (Z01.818) Active confirmed Plan Of Treatment Pending Test Test Name Order Date GI BIOPSY 11/27/2019 Future Test Test Name Order Date COLONOSCOPY 09/10/2019 Insurance Providers Payer Name Payer Address Payer Phone Subscriber Number Group Number Insured Name Patient Relationship to Insured Coverage Start Date Coverage End Date MEDICARE OF [employer] [address] [place] [address] [id number] NELSON SCHILLING Self - patient is the insured FOR LIFE [address] [place] [address] [phone] [id number] JENNIFER ADAMS NELSON Self - patient is the insured Medical (General) History Medical History History ICD Code Denies [place],DM,CVA,Lung disease,renal dise ase Negative screening colonoscopy in 9 except for a hyperplastic polyp. HTN Prostate cancer Surgical History Surgery Date(Month/Year) Radical prostatectomy with f/u radiation 2004 Carpal tunnel surgery both wrist 2014
--- OUTSIDE RECORDS SUMMARY | 2025-01-14 17:41 | XMS_ITS | Encounter Summary ---
Author Organization [facility] Address [address] [place] [address] Phone Care Team Providers Care Director Of Safety And Security Name Role Phone Derick Braxton MD Primary Care Provider [phone] Encounter Details Date Type Department Care Team (Late st Contact Info) Description 01/07/2025 Procedure Pass [facility] Radiology [address] [place], [place] [id number] Social History Tobacco Use Types Packs/Day Years [...] 6:10 PM EDT Vania Coley, ISMA * [place] Suicide Severity Rating Scale (Screener/Recent Self-Report) Question [...] on filedocumented in this encounter Care Teams Director Of Safety And Security Relationship Specialty Start Date End Date Derick Braxton MD [address] [place] [address] [place] [phone] PCP - General Internal Medicine 01/13/15 documented as of this encounter Additional Source Comments The information contained in this document represents components of the legal health record. It is not the complete legal health record.[facility]
== END 2025-01-14 15:24 | disposition home or self-care (01) ==
LOC: HO.HMCH 14:20
PROVIDERS: PCP Internal Medicine
DX: S09.90XA Unspecified injury of head, initial encounter (principal); Z04.2 Encounter for examination and observation following work accident

== ENCOUNTER → 2025-01-14 14:19 | Outpatient (BNVA) | payer MEDICARE, OTHER, SELFPAY | PROVIDERS: PCP Internal Medicine | DX: S09.90XA Unspecified injury of head, initial encounter (principal); X58.XXXA Exposure to other specified factors, initial encounter; Y93.9 Activity, unspecified; Y92.9 Unspecified place or not applicable; Y99.9 Unspecified external cause status | CPT/HCPCS: 99212 ==